=== PATIENT | male | born 1995 | race Caucasian/White ===

== ENCOUNTER 2023-08-04 18:45 | Inpatient (IN) | payer OTHER ==
[~2023-08-04] VITALS: Ht 154.9 cm; Wt 59.1 kg
[2023-08-04 19:46] LABS: HEMATOCRIT 44.8 % (42.0-52.0); HEMOGLOBIN 15.5 g/dl (13.5-17.5); MEAN CORPUSCULAR HEMOGLOBIN 30.9 pg (27.0-33.0); MEAN CORPUSCULAR HGB CONC 34.6 g/dl (32.0-36.5); MEAN CORPUSCULAR VOLUME 89.2 fl (80.0-96.0); PLATELET COUNT, AUTOMATED 307 10^3/uL (150-450); RED BLOOD COUNT 5.02 10^6/uL (4.30-6.10); WHITE BLOOD COUNT 10.7 10^3/uL (4.0-10.0)
[2023-08-04 20:11] LABS: AMPHETAMINES LEVEL URINE NEGATIVE (NEGATIVE); BARBITURATES URINE NEGATIVE (NEGATIVE); BENZODIAZEPINES URINE NEGATIVE (NEGATIVE); COCAINE METABOLITE URINE NEGATIVE (NEGATIVE); METHADONE URINE NEGATIVE (NEGATIVE); OPIATES URINE NEGATIVE (NEGATIVE); PHENCYCLIDINE URINE NEGATIVE (NEGATIVE)
[2023-08-04 20:13] LABS: ETHYL ALCOHOL (ETHANOL) 0.004 % (0.000-0.010)
[2023-08-04 20:14] LABS: SALICYLATE LEVEL < 3.0 MG/DL (<30)
[2023-08-04 20:15] LABS: CANNABINOIDS URINE POSITIVE (NEGATIVE)
[2023-08-04 20:19] LABS: ALBUMIN 4.2 G/DL (3.2-5.2); ALKALINE PHOSPHATASE 78 U/L (46-116); ALT/SGPT 12 U/L (7.0-40); AST/SGOT 8 U/L (<34); BILIRUBIN,DIRECT 0.1 MG/DL (<0.4); BILIRUBIN,TOTAL 0.3 MG/DL (0.3-1.2); BLOOD UREA NITROGEN 10 MG/DL (9-23); CALCIUM LEVEL 9.4 MG/DL (8.5-10.1); CARBON DIOXIDE LEVEL 26 MMOL/L (20-31); CHLORIDE LEVEL 108 MMOL/L (98-107); CREATININE FOR GFR 0.62 MG/DL (0.70-1.30); GLOMERULAR FILTRATION RATE > 60.0 (>60); GLUCOSE, FASTING 96 MG/DL (60-100); POTASSIUM SERUM 4.3 MMOL/L (3.5-5.1); SODIUM LEVEL 138 MMOL/L (136-145); THYROID STIMULATING HORMONE 2.512 uIU/ML (0.55-4.78); TOTAL PROTEIN 6.9 G/DL (5.7-8.2)
[2023-08-05] MEDS ORDERED: TRAZ-252 (07:19)
[2023-08-05] MEDS ORDERED: SPIR50TA4 PO (07:19)
[2023-08-05] MEDS ORDERED: ESTR1DIS TOP (07:19)
[2023-08-05] MEDS ORDERED: TOPI200T7 PO (07:19)
[2023-08-05] MEDS ORDERED: HYDR50TA70 PO (07:19)
[2023-08-05] MEDS ORDERED: CITA10TA7 PO (07:19)
[2023-08-05] MEDS ORDERED: TRAZ-257 PO (07:53)
[2023-08-05] MEDS ORDERED: ARIP1TAB6 PO (07:53)
[2023-08-05] MEDS ORDERED: HOME MED LIST COMPLETE! XX SCH (08:00)
[2023-08-05] MEDS: TOPIRAMATE (TopAMAX) 100 MG TAB PO SCH ×2 (09:02→21:00)
[2023-08-05] MEDS: CitaloPRAM (CeleXA) 10 MG TABLET PO SCH (09:02)
[2023-08-05] MEDS: SPIRONOLACTONE 50 MG TAB PO SCH ×2 (09:43→16:52)
[2023-08-05] MEDS ORDERED: LORazepam 2 MG TAB PO STA (18:17)
[2023-08-05] MEDS: traZODone 100 MG TAB PO SCH (21:00)
[2023-08-06] MEDS: traZODone 100 MG TAB PO SCH (01:50)
[2023-08-06] MEDS: TOPIRAMATE (TopAMAX) 100 MG TAB PO SCH ×3 (01:53→21:44)
[2023-08-06] MEDS: CitaloPRAM (CeleXA) 10 MG TABLET PO SCH (09:26)
[2023-08-06] MEDS: SPIRONOLACTONE 50 MG TAB PO SCH ×2 (09:27→18:05)
[2023-08-06] MEDS ORDERED: MAALOX 30 ML SUSP *UDC PO PRN (16:00)
[2023-08-06] MEDS ORDERED: IBUPROFEN 400MG TAB PO PRN (16:00)
[2023-08-06] MEDS ORDERED: MOM 30ML SUSPENSION UDC PO PRN (16:00)
[2023-08-06] MEDS ORDERED: ACETAMINOPHEN TAB 650MG DOSE (2X325MG) PO PRN (16:00)
[2023-08-06] MEDS ORDERED: traZODone 50 MG TAB PO PRN (16:00)
[2023-08-06] MEDS ORDERED: LORazepam 2 MG TAB PO STA (21:20)
[2023-08-06] MEDS ORDERED: OLANZapine INTRAMUSCULAR 10MG VIAL IM ONE (21:35)
[2023-08-06] MEDS ORDERED: LORazepam 2 MG/ML 1ML VIAL As Ordered ONE (21:36)
[2023-08-06] MEDS: diphenhydrAMINE 25MG CAP PO PRN (21:44)
[2023-08-07 00:41] VITALS: BP 131/80; TEMP 98; O2SAT 98
[2023-08-07 06:20] VITALS: BP 119/72; TEMP 98; O2SAT 97
[2023-08-07] MEDS ORDERED: CHLORASEPTIC SPRAY MT PRN (09:25)
[2023-08-07] MEDS: ARIPiprazole 10 MG TAB PO SCH (09:27)
[2023-08-07] MEDS: CitaloPRAM (CeleXA) 10 MG TABLET PO SCH (09:27)
[2023-08-07] MEDS: TOPIRAMATE (TopAMAX) 100 MG TAB PO SCH ×2 (09:27→20:12)
[2023-08-07] MEDS: SPIRONOLACTONE 25 MG TAB PO SCH ×2 (10:40→16:14)
[2023-08-07 10:55] LABS: BASO # 0.1 10^3/uL (0.0-0.2); BASO % 0.9 % (0.0-1.0); EOS # 0.1 10^3/uL (0.0-0.5); EOS % 1.4 % (0.0-3.0); HEMATOCRIT 46.8 % (42.0-52.0); HEMOGLOBIN 15.9 g/dl (13.5-17.5); LYMPH # 1.4 10^3/uL (1.5-5.0); LYMPH % 24.9 % (24.0-44.0); MEAN CORPUSCULAR HEMOGLOBIN 30.5 pg (27.0-33.0); MEAN CORPUSCULAR VOLUME 89.7 fl (80.0-96.0); MONO # 0.8 10^3/uL (0.0-0.8); MONO % 14.5 % (2.0-8.0); NEUTROPHILS # 3.3 10^3/uL (1.5-8.5); NEUTROPHILS % 57.6 % (36.0-66.0); PLATELET COUNT, AUTOMATED 281 10^3/uL (150-450); RED BLOOD COUNT 5.22 10^6/uL (4.30-6.10); WHITE BLOOD COUNT 5.7 10^3/uL (4.0-10.0)
[2023-08-07] MEDS: AMOXICILLIN 875 MG TAB PO SCH ×2 (10:57→20:12)
[2023-08-07 11:02] LABS: ERYTHROCYTE SEDIMENTATION RATE 4 mm/hr (0-15)
[2023-08-07 11:23] LABS: MONO SCRN NEGATIVE (NEGATIVE)
[2023-08-07] MEDS: CHLORASEPTIC SPRAY MT SCH ×3 (12:18→20:13)
[2023-08-07] MEDS: ESTRADIOL TD SCH (12:19)
[2023-08-07 18:00] VITALS: BP 142/67; TEMP 97.5; O2SAT 99
[2023-08-07] MEDS: traZODone 100 MG TAB PO SCH (20:12)
[2023-08-07] MEDS: OLANZapine ORAL DISINTEGRATING TAB 5MG PO PRN (20:58)
[2023-08-07] MEDS: diphenhydrAMINE 25MG CAP PO PRN (22:25)
[2023-08-08 06:05] VITALS: BP 143/63; TEMP 97.7; O2SAT 97
[2023-08-08] MEDS: TOPIRAMATE (TopAMAX) 100 MG TAB PO SCH ×2 (08:11→20:11)
[2023-08-08] MEDS: SPIRONOLACTONE 25 MG TAB PO SCH ×2 (08:11→16:36)
[2023-08-08] MEDS: AMOXICILLIN 875 MG TAB PO SCH ×2 (08:11→20:11)
[2023-08-08] MEDS: CitaloPRAM (CeleXA) 10 MG TABLET PO SCH (08:12)
[2023-08-08] MEDS: ARIPiprazole 10 MG TAB PO SCH (08:12)
[2023-08-08] MEDS: CHLORASEPTIC SPRAY MT SCH ×4 (08:12→20:11)
[2023-08-08] MEDS: PILL CUTTER 1 EACH XX PRN (08:12)
[2023-08-08 16:50] VITALS: BP 129/76; TEMP 97.6; O2SAT 96
[2023-08-08] MEDS: diphenhydrAMINE 25MG CAP PO PRN (21:24)
[2023-08-08] MEDS: traZODone 100 MG TAB PO SCH (21:24)
[2023-08-09 05:51] VITALS: BP 101/46; TEMP 98.6
[2023-08-09 07:05] LABS: CHOLESTEROL RISK RATIO 3.12 (<5); HDL CHOLESTEROL 40.9 MG/DL (>40); LDL CHOLESTEROL 70.5 MG/DL (<100); NON-HDL-C 87.1 MG/DL
[2023-08-09] MEDS: TOPIRAMATE (TopAMAX) 100 MG TAB PO SCH ×2 (08:29→20:07)
[2023-08-09] MEDS: AMOXICILLIN 875 MG TAB PO SCH ×2 (08:29→20:06)
[2023-08-09] MEDS: ARIPiprazole 10 MG TAB PO SCH (08:29)
[2023-08-09] MEDS: CitaloPRAM (CeleXA) 10 MG TABLET PO SCH (08:29)
[2023-08-09] MEDS: SPIRONOLACTONE 25 MG TAB PO SCH ×2 (08:30→16:03)
[2023-08-09] MEDS: CHLORASEPTIC SPRAY MT SCH ×4 (08:31→20:07)
[2023-08-09 16:12] VITALS: BP 118/68; TEMP 98.3; O2SAT 99
[2023-08-09] MEDS: traZODone 100 MG TAB PO SCH (20:22)
[2023-08-10 06:18] VITALS: BP 122/65; TEMP 98
[2023-08-10] MEDS: CHLORASEPTIC SPRAY MT SCH ×4 (08:06→20:05)
[2023-08-10] MEDS: AMOXICILLIN 875 MG TAB PO SCH ×2 (08:06→20:05)
[2023-08-10] MEDS: TOPIRAMATE (TopAMAX) 100 MG TAB PO SCH ×2 (08:07→20:05)
[2023-08-10] MEDS: SPIRONOLACTONE 25 MG TAB PO SCH ×2 (08:07→17:19)
[2023-08-10] MEDS: ARIPiprazole 10 MG TAB PO SCH (08:07)
[2023-08-10] MEDS: CitaloPRAM (CeleXA) 10 MG TABLET PO SCH (08:08)
[2023-08-10] MEDS: ESTRADIOL TD SCH ×2 (08:44→09:00)
[2023-08-10 16:47] VITALS: BP 116/60; TEMP 98.6; O2SAT 100
[2023-08-10] MEDS: traZODone 50 MG TAB PO SCH (20:05)
[2023-08-11 06:20] VITALS: BP 114/66; TEMP 96.9; O2SAT 98
[2023-08-11] MEDS: CHLORASEPTIC SPRAY MT SCH (08:16)
[2023-08-11] MEDS: CitaloPRAM (CeleXA) 10 MG TABLET PO SCH (08:17)
[2023-08-11] MEDS: ARIPiprazole 15 MG TAB (AbiLIFY) PO SCH (08:19)
[2023-08-11] MEDS: PILL CUTTER 1 EACH XX PRN (08:19)
[2023-08-11] MEDS: AMOXICILLIN 875 MG TAB PO SCH ×2 (08:19→20:07)
[2023-08-11] MEDS: SPIRONOLACTONE 25 MG TAB PO SCH ×2 (08:19→17:35)
[2023-08-11] MEDS: TOPIRAMATE (TopAMAX) 100 MG TAB PO SCH ×2 (08:19→20:07)
[2023-08-11 16:25] VITALS: BP 114/73; TEMP 97.7; O2SAT 100
[2023-08-11] MEDS: traZODone 50 MG TAB PO SCH (20:40)
[2023-08-12 06:19] VITALS: BP 123/61; TEMP 97.9; O2SAT 96
[2023-08-12] MEDS: TOPIRAMATE (TopAMAX) 100 MG TAB PO SCH ×2 (08:38→20:26)
[2023-08-12] MEDS: CitaloPRAM (CeleXA) 10 MG TABLET PO SCH (08:38)
[2023-08-12] MEDS: ARIPiprazole 15 MG TAB (AbiLIFY) PO SCH (08:38)
[2023-08-12] MEDS: AMOXICILLIN 875 MG TAB PO SCH ×2 (08:38→20:26)
[2023-08-12] MEDS: SPIRONOLACTONE 25 MG TAB PO SCH ×2 (08:38→17:17)
[2023-08-12] MEDS: PILL CUTTER 1 EACH XX PRN (08:39)
[2023-08-12] MEDS: OLANZapine ORAL DISINTEGRATING TAB 5MG PO PRN (20:26)
[2023-08-12] MEDS: traZODone 50 MG TAB PO SCH (21:19)
[2023-08-13 06:16] VITALS: BP 105/56; TEMP 97.6; O2SAT 98
[2023-08-13] MEDS: CitaloPRAM (CeleXA) 10 MG TABLET PO SCH (08:30)
[2023-08-13] MEDS: SPIRONOLACTONE 50 MG TAB PO SCH ×2 (08:30→16:38)
[2023-08-13] MEDS: ARIPiprazole 15 MG TAB (AbiLIFY) PO SCH (08:30)
[2023-08-13] MEDS: TOPIRAMATE (TopAMAX) 100 MG TAB PO SCH ×2 (08:31→20:24)
[2023-08-13] MEDS: AMOXICILLIN 875 MG TAB PO SCH ×2 (08:32→20:24)
[2023-08-13 17:20] VITALS: BP 112/57; TEMP 97.9
[2023-08-13] MEDS: traZODone 50 MG TAB PO SCH (21:20)
[2023-08-14 06:36] VITALS: BP 110/55; TEMP 97.9; O2SAT 100
[2023-08-14] MEDS: AMOXICILLIN 875 MG TAB PO SCH ×2 (08:21→20:19)
[2023-08-14] MEDS: CitaloPRAM (CeleXA) 10 MG TABLET PO SCH (08:22)
[2023-08-14] MEDS: ARIPiprazole 15 MG TAB (AbiLIFY) PO SCH (08:22)
[2023-08-14] MEDS: TOPIRAMATE (TopAMAX) 100 MG TAB PO SCH ×2 (08:22→20:19)
[2023-08-14] MEDS: SPIRONOLACTONE 50 MG TAB PO SCH ×2 (08:22→17:27)
[2023-08-14] MEDS: PILL CUTTER 1 EACH XX PRN (08:24)
[2023-08-14] MEDS: ESTRADIOL TD SCH (09:00)
[2023-08-14] MEDS ORDERED: ARIPiprazole MONOHYDRATE 400 MG INJ (ABILIFY) PT CHG ONE IM (11:00)
[2023-08-14] MEDS ORDERED: ARIPiprazole MONOHYDRATE 400 MG INJ (ABILIFY)(FREE PSY INPT ONLY) IM ONE (12:00)
[2023-08-14 19:09] VITALS: BP 120/58; TEMP 98.1; O2SAT 97
[2023-08-14] MEDS: diphenhydrAMINE 25MG CAP PO PRN (21:00)
[2023-08-14] MEDS: traZODone 50 MG TAB PO SCH (21:00)
[2023-08-14] MEDS: OLANZapine ORAL DISINTEGRATING TAB 5MG PO PRN (21:39)
[2023-08-15] MEDS: SPIRONOLACTONE 50 MG TAB PO SCH ×2 (08:06→16:50)
[2023-08-15] MEDS: CitaloPRAM (CeleXA) 10 MG TABLET PO SCH (08:06)
[2023-08-15] MEDS: AMOXICILLIN 875 MG TAB PO SCH ×2 (08:06→20:03)
[2023-08-15] MEDS: TOPIRAMATE (TopAMAX) 100 MG TAB PO SCH ×2 (08:06→20:03)
[2023-08-15] MEDS: ARIPiprazole 15 MG TAB (AbiLIFY) PO SCH (08:06)
[2023-08-15] MEDS: PILL CUTTER 1 EACH XX PRN (08:07)
[2023-08-15] MEDS: diphenhydrAMINE 25MG CAP PO PRN (10:33)
[2023-08-15 19:08] VITALS: BP 124/70; TEMP 98.7
[2023-08-15] MEDS: traZODone 50 MG TAB PO SCH (21:42)
[2023-08-16 06:21] VITALS: BP 138/64; TEMP 98.1; O2SAT 98
[2023-08-16] MEDS: diphenhydrAMINE 25MG CAP PO PRN (07:58)
[2023-08-16] MEDS: CitaloPRAM (CeleXA) 10 MG TABLET PO SCH (08:02)
[2023-08-16] MEDS: ARIPiprazole 15 MG TAB (AbiLIFY) PO SCH (08:02)
[2023-08-16] MEDS: AMOXICILLIN 875 MG TAB PO SCH (08:02)
[2023-08-16] MEDS: SPIRONOLACTONE 50 MG TAB PO SCH (08:02)
[2023-08-16] MEDS: TOPIRAMATE (TopAMAX) 100 MG TAB PO SCH (08:02)
[2023-08-16] MEDS ORDERED: CELE10TA PO ×2 (09:30→09:33)
[2023-08-16] MEDS ORDERED: ABIL1TAB12 PO (09:30)
[2023-08-16] MEDS ORDERED: TRAZ-257 PO (09:30)
== END 2023-08-16 12:17 | disposition other institution (70) | DRG 750 ==
LOC: EDBD 18:45 → M ED 18:45 → M ED INP 08-06 16:02 → M PSY 08-06 23:45
PROVIDERS: ADMIT Student in an Organized Health Care Education/Training Program; ATTEND Student in an Organized Health Care Education/Training Program
DX: F25.9 Schizoaffective disorder, unspecified (principal); F79 Unspecified intellectual disabilities; R45.851 Suicidal ideations; F41.9 Anxiety disorder, unspecified; F60.3 Borderline personality disorder; J02.9 Acute pharyngitis, unspecified; F17.210 Nicotine dependence, cigarettes, uncomplicated; F64.0 Transsexualism; Z59.01 Sheltered homelessness; Z56.0 Unemployment, unspecified; Z91.51 Personal history of suicidal behavior; Z79.899 Other long term (current) drug therapy; Z63.8 Other specified problems related to primary support group

== ENCOUNTER 2023-09-08 13:52 | Inpatient (IN) | payer MEDICAID, OTHER ==
[~2023-09-08] VITALS: Ht 154.9 cm; Wt 58.1 kg
[~2023-09-08 13:52] MED LIST: ABIL1TAB12 PO; ARIP1TAB6 PO; CELE10TA PO; CITA10TA7 PO; ESTR1DIS TOP; HYDR50TA70 PO; SPIR50TA4 PO; TOPI200T7 PO; TRAZ-252; TRAZ-257 PO
[2023-09-08 14:55] LABS: BASO % 0.6 % (0.0-1.0); EOS # 0.1 10^3/uL (0.0-0.5); HEMATOCRIT 44.6 % (42.0-52.0); HEMOGLOBIN 15.8 g/dl (13.5-17.5); LYMPH % 28.1 % (24.0-44.0); MEAN CORPUSCULAR HEMOGLOBIN 30.9 pg (27.0-33.0); MEAN CORPUSCULAR HGB CONC 35.4 g/dl (32.0-36.5); MEAN CORPUSCULAR VOLUME 87.1 fl (80.0-96.0); MONO # 0.8 10^3/uL (0.0-0.8); MONO % 10.6 % (2.0-8.0); NEUTROPHILS # 4.2 10^3/uL (1.5-8.5); NEUTROPHILS % 59.3 % (36.0-66.0); PLATELET COUNT, AUTOMATED 314 10^3/uL (150-450); RED BLOOD COUNT 5.12 10^6/uL (4.30-6.10); WHITE BLOOD COUNT 7.1 10^3/uL (4.0-10.0)
[2023-09-08 15:23] LABS: ETHYL ALCOHOL (ETHANOL) < 0.003 % (0.000-0.010)
[2023-09-08 15:24] LABS: SALICYLATE LEVEL < 3.0 MG/DL (<30)
[2023-09-08 15:25] LABS: ALBUMIN 4.3 G/DL (3.2-5.2); ALKALINE PHOSPHATASE 79 U/L (46-116); ALT/SGPT 12 U/L (7.0-40); AST/SGOT 10 U/L (<34); BILIRUBIN,DIRECT 0.1 MG/DL (<0.4); BILIRUBIN,TOTAL 0.4 MG/DL (0.3-1.2); BLOOD UREA NITROGEN 12 MG/DL (9-23); CALCIUM LEVEL 8.9 MG/DL (8.5-10.1); CARBON DIOXIDE LEVEL 20 MMOL/L (20-31); CHLORIDE LEVEL 108 MMOL/L (98-107); CREATININE FOR GFR 0.68 MG/DL (0.70-1.30); GLOMERULAR FILTRATION RATE > 60.0 (>60); GLUCOSE, FASTING 84 MG/DL (60-100); POTASSIUM SERUM 4.1 MMOL/L (3.5-5.1); SODIUM LEVEL 136 MMOL/L (136-145); TOTAL PROTEIN 6.9 G/DL (5.7-8.2)
[2023-09-08 15:27] LABS: THYROID STIMULATING HORMONE 1.625 uIU/ML (0.55-4.78)
[2023-09-08 15:30] LABS: CPK CREATINE PHOSPHOKINASE 61 U/L (46-171)
[2023-09-08 15:34] LABS: RSV AMPLIFICATION NEGATIVE (NEGATIVE)
[2023-09-08 20:13] LABS: AMPHETAMINES LEVEL URINE NEGATIVE (NEGATIVE); BARBITURATES URINE NEGATIVE (NEGATIVE); BENZODIAZEPINES URINE NEGATIVE (NEGATIVE); CANNABINOIDS URINE NEGATIVE (NEGATIVE); COCAINE METABOLITE URINE NEGATIVE (NEGATIVE); METHADONE URINE NEGATIVE (NEGATIVE); OPIATES URINE NEGATIVE (NEGATIVE); PHENCYCLIDINE URINE NEGATIVE (NEGATIVE)
[2023-09-08] MEDS ORDERED: diphenhydrAMINE 25MG CAP PO PRN (21:00)
[2023-09-08] MEDS ORDERED: traZODone 50 MG TAB PO PRN (21:00)
[2023-09-08] MEDS ORDERED: MAALOX 30 ML SUSP *UDC PO PRN (21:00)
[2023-09-08] MEDS ORDERED: ACETAMINOPHEN TAB 650MG DOSE (2X325MG) PO PRN (21:00)
[2023-09-08] MEDS: TOPIRAMATE (TopAMAX) 100 MG TAB PO SCH (21:00)
[2023-09-08] MEDS ORDERED: MOM 30ML SUSPENSION UDC PO PRN (21:00)
[2023-09-08] MEDS ORDERED: NICOTINE 21MG/24HR 1 EA TRANSDERMAL TD PRN (21:00)
[2023-09-08] MEDS ORDERED: IBUPROFEN 400MG TAB PO PRN (21:00)
[2023-09-08] MEDS ORDERED: hydrOXYzine 50 MG TAB PO PRN (21:05)
[2023-09-08] MEDS ORDERED: ESTR2TAB3 PO (21:20)
[2023-09-08] MEDS ORDERED: ARIP1TAB10 PO (21:21)
[2023-09-08] MEDS ORDERED: TRAZ1TAB14 PO (21:21)
[2023-09-08] MEDS ORDERED: HOME MED LIST COMPLETE! XX SCH (21:25)
[2023-09-08 23:32] VITALS: BP 109/53; TEMP 98; O2SAT 100
[2023-09-08] MEDS: traZODone 100 MG TAB PO SCH (23:57)
[2023-09-09 06:31] VITALS: BP 115/58; TEMP 97.6; O2SAT 97
[2023-09-09] MEDS ORDERED: PILL CUTTER 1 EACH XX PRN (09:25)
[2023-09-09] MEDS: CitaloPRAM (CeleXA) 10 MG TABLET PO SCH (09:29)
[2023-09-09] MEDS: ARIPiprazole 15 MG TAB (AbiLIFY) PO SCH (09:32)
[2023-09-09] MEDS: SPIRONOLACTONE 50 MG TAB PO SCH (09:32)
[2023-09-09] MEDS: estradioL 1 MG TAB PO SCH (13:03)
[2023-09-09 16:18] VITALS: BP 112/56; TEMP 97.9; O2SAT 100
[2023-09-10 06:29] VITALS: BP 111/55; TEMP 98.3; O2SAT 98
[2023-09-10] MEDS: CitaloPRAM (CeleXA) 20 MG TAB PO SCH (08:29)
[2023-09-10 17:31] VITALS: BP 122/68; TEMP 97.1
[2023-09-11 06:15] VITALS: BP 119/58; TEMP 97.1; O2SAT 97
[2023-09-11] MEDS ORDERED: CELE20TA PO (06:57)
== END 2023-09-11 08:36 | disposition home or self-care (01) | DRG 750 ==
LOC: M ED 13:52 → EDBD 13:52 → M ED INP 20:56 → M PSY 23:17
PROVIDERS: ADMIT Student in an Organized Health Care Education/Training Program; ATTEND Student in an Organized Health Care Education/Training Program
DX: F25.9 Schizoaffective disorder, unspecified (principal); R56.9 Unspecified convulsions; R45.851 Suicidal ideations; F79 Unspecified intellectual disabilities; Z59.01 Sheltered homelessness; F41.9 Anxiety disorder, unspecified; F64.9 Gender identity disorder, unspecified; F17.200 Nicotine dependence, unspecified, uncomplicated; F60.3 Borderline personality disorder; Z91.51 Personal history of suicidal behavior; Z79.899 Other long term (current) drug therapy; Z91.52 Personal history of nonsuicidal self-harm

== ENCOUNTER 2023-09-12 21:21 | Emergency (ER) | payer OTHER ==
[~2023-09-12] VITALS: Ht 154.9 cm; Wt 58.2 kg
[~2023-09-12 21:21] MED LIST changes: +ARIP1TAB10 PO; +CELE20TA PO; +ESTR2TAB3 PO; +TRAZ1TAB14 PO
[2023-09-12 21:50] VITALS: BP 116/69; TEMP 97.1; O2SAT 99
[2023-09-12 22:26] LABS: HEMATOCRIT 44.6 % (42.0-52.0); HEMOGLOBIN 15.2 g/dl (13.5-17.5); MEAN CORPUSCULAR HGB CONC 34.1 g/dl (32.0-36.5); PLATELET COUNT, AUTOMATED 284 10^3/uL (150-450); RED BLOOD COUNT 5.07 10^6/uL (4.30-6.10)
[2023-09-12 22:46] LABS: AMPHETAMINES LEVEL URINE NEGATIVE (NEGATIVE); BARBITURATES URINE NEGATIVE (NEGATIVE); BENZODIAZEPINES URINE NEGATIVE (NEGATIVE); COCAINE METABOLITE URINE NEGATIVE (NEGATIVE); METHADONE URINE NEGATIVE (NEGATIVE); OPIATES URINE NEGATIVE (NEGATIVE); PHENCYCLIDINE URINE NEGATIVE (NEGATIVE)
[2023-09-12 22:47] LABS: ETHYL ALCOHOL (ETHANOL) 0.005 % (0.000-0.010)
[2023-09-12 22:48] LABS: SALICYLATE LEVEL < 3.0 MG/DL (<30)
[2023-09-12 22:49] LABS: ALBUMIN 4.2 G/DL (3.2-5.2); ALKALINE PHOSPHATASE 77 U/L (46-116); ALT/SGPT 13 U/L (7.0-40); AST/SGOT 13 U/L (<34); BILIRUBIN,DIRECT 0.2 MG/DL (<0.4); BILIRUBIN,TOTAL 0.4 MG/DL (0.3-1.2); BLOOD UREA NITROGEN 7 MG/DL (9-23); CALCIUM LEVEL 9.2 MG/DL (8.5-10.1); CARBON DIOXIDE LEVEL 21 MMOL/L (20-31); CHLORIDE LEVEL 111 MMOL/L (98-107); GLOMERULAR FILTRATION RATE > 60.0 (>60); GLUCOSE, FASTING 109 MG/DL (60-100); POTASSIUM SERUM 3.7 MMOL/L (3.5-5.1); SODIUM LEVEL 140 MMOL/L (136-145); TOTAL PROTEIN 6.8 G/DL (5.7-8.2)
[2023-09-12 22:52] LABS: THYROID STIMULATING HORMONE 4.829 uIU/ML (0.55-4.78)
[2023-09-12 23:02] LABS: CANNABINOIDS URINE POSITIVE (NEGATIVE)
[2023-09-13] MEDS ORDERED: CELE20TA PO (23:43)
== END 2023-09-13 00:09 | disposition home or self-care (01) ==
LOC: M ED 21:21
DX: F32.A Depression, unspecified (principal); F43.0 Acute stress reaction; F17.200 Nicotine dependence, unspecified, uncomplicated; Z79.899 Other long term (current) drug therapy

== ENCOUNTER 2023-09-13 21:22 | Emergency (ER) | payer OTHER ==
[2023-09-13 22:07] LABS: HEMATOCRIT 43.9 % (42.0-52.0); HEMOGLOBIN 15.3 g/dl (13.5-17.5); MEAN CORPUSCULAR HEMOGLOBIN 30.6 pg (27.0-33.0); MEAN CORPUSCULAR HGB CONC 34.9 g/dl (32.0-36.5); MEAN CORPUSCULAR VOLUME 87.8 fl (80.0-96.0); PLATELET COUNT, AUTOMATED 283 10^3/uL (150-450); WHITE BLOOD COUNT 8.5 10^3/uL (4.0-10.0)
[2023-09-13 22:37] LABS: ETHYL ALCOHOL (ETHANOL) < 0.003 % (0.000-0.010)
[2023-09-13 22:39] LABS: SALICYLATE LEVEL < 3.0 MG/DL (<30)
[2023-09-13 22:41] LABS: ALBUMIN 4.1 G/DL (3.2-5.2); ALKALINE PHOSPHATASE 70 U/L (46-116); ALT/SGPT 13 U/L (7.0-40); AST/SGOT 10 U/L (<34); BILIRUBIN,DIRECT 0.1 MG/DL (<0.4); BILIRUBIN,TOTAL 0.3 MG/DL (0.3-1.2); BLOOD UREA NITROGEN 15 MG/DL (9-23); CALCIUM LEVEL 9.1 MG/DL (8.5-10.1); CARBON DIOXIDE LEVEL 23 MMOL/L (20-31); CHLORIDE LEVEL 111 MMOL/L (98-107); CREATININE FOR GFR 0.61 MG/DL (0.70-1.30); GLOMERULAR FILTRATION RATE > 60.0 (>60); GLUCOSE, FASTING 87 MG/DL (60-100); POTASSIUM SERUM 3.8 MMOL/L (3.5-5.1); SODIUM LEVEL 140 MMOL/L (136-145); THYROID STIMULATING HORMONE 3.176 uIU/ML (0.55-4.78); TOTAL PROTEIN 6.7 G/DL (5.7-8.2)
[2023-09-13] MEDS ORDERED: CELE20TA PO (23:43)
[2023-09-13] MEDS ORDERED: HOME MED LIST COMPLETE! XX SCH (23:45)
[2023-09-14 00:25] LABS: AMPHETAMINES LEVEL URINE NEGATIVE (NEGATIVE); BARBITURATES URINE NEGATIVE (NEGATIVE); BENZODIAZEPINES URINE NEGATIVE (NEGATIVE); COCAINE METABOLITE URINE NEGATIVE (NEGATIVE); METHADONE URINE NEGATIVE (NEGATIVE); OPIATES URINE NEGATIVE (NEGATIVE); PHENCYCLIDINE URINE NEGATIVE (NEGATIVE)
[2023-09-14 00:26] LABS: CANNABINOIDS URINE POSITIVE (NEGATIVE)
[2023-09-14] MEDS: CitaloPRAM (CeleXA) 20 MG TAB PO SCH (11:36)
[2023-09-14 13:04] VITALS: BP 124/72; TEMP 98; O2SAT 99
[2023-09-14] MEDS ORDERED: TOPIRAMATE (TopAMAX) 100 MG TAB PO SCH (21:00)
[2023-09-15] MEDS ORDERED: estradioL 1 MG TAB PO SCH (09:00)
[2023-09-15] MEDS ORDERED: ARIPiprazole 15 MG TAB (AbiLIFY) PO SCH (09:00)
[2023-09-15] MEDS ORDERED: SPIRONOLACTONE 50 MG TAB PO SCH (09:00)
== END 2023-09-14 13:28 | disposition home or self-care (01) ==
LOC: M ED 21:22
DX: F32.A Depression, unspecified (principal); F17.210 Nicotine dependence, cigarettes, uncomplicated; F10.10 Alcohol abuse, uncomplicated; Z79.899 Other long term (current) drug therapy

== ENCOUNTER 2023-09-16 20:31 | Inpatient (IN) | payer OTHER ==
[~2023-09-16] VITALS: Ht 154.9 cm; Wt 58.4 kg
[2023-09-16 21:14] LABS: HEMATOCRIT 44.9 % (42.0-52.0); HEMOGLOBIN 15.3 g/dl (13.5-17.5); MEAN CORPUSCULAR HEMOGLOBIN 30.1 pg (27.0-33.0); MEAN CORPUSCULAR HGB CONC 34.1 g/dl (32.0-36.5); MEAN CORPUSCULAR VOLUME 88.4 fl (80.0-96.0); PLATELET COUNT, AUTOMATED 282 10^3/uL (150-450); RED BLOOD COUNT 5.08 10^6/uL (4.30-6.10); WHITE BLOOD COUNT 7.3 10^3/uL (4.0-10.0)
[2023-09-16] MEDS ORDERED: HOME MED LIST COMPLETE! XX SCH (21:20)
[2023-09-16 21:38] LABS: BARBITURATES URINE NEGATIVE (NEGATIVE); COCAINE METABOLITE URINE NEGATIVE (NEGATIVE)
[2023-09-16 21:39] LABS: AMPHETAMINES LEVEL URINE NEGATIVE (NEGATIVE); BENZODIAZEPINES URINE NEGATIVE (NEGATIVE); METHADONE URINE NEGATIVE (NEGATIVE); OPIATES URINE NEGATIVE (NEGATIVE); PHENCYCLIDINE URINE NEGATIVE (NEGATIVE)
[2023-09-16 21:40] LABS: CANNABINOIDS URINE POSITIVE (NEGATIVE)
[2023-09-16 21:42] LABS: ETHYL ALCOHOL (ETHANOL) < 0.003 % (0.000-0.010)
[2023-09-16 21:43] LABS: SALICYLATE LEVEL < 3.0 MG/DL (<30)
[2023-09-16 21:44] LABS: THYROID STIMULATING HORMONE 2.756 uIU/ML (0.55-4.78)
[2023-09-16 21:47] LABS: ALBUMIN 3.9 G/DL (3.2-5.2); ALKALINE PHOSPHATASE 72 U/L (46-116); ALT/SGPT 11 U/L (7.0-40); AST/SGOT 12 U/L (<34); BILIRUBIN,DIRECT 0.1 MG/DL (<0.4); BILIRUBIN,TOTAL 0.3 MG/DL (0.3-1.2); BLOOD UREA NITROGEN 7 MG/DL (9-23); CALCIUM LEVEL 8.6 MG/DL (8.5-10.1); CARBON DIOXIDE LEVEL 25 MMOL/L (20-31); CHLORIDE LEVEL 112 MMOL/L (98-107); CREATININE FOR GFR 0.55 MG/DL (0.70-1.30); GLOMERULAR FILTRATION RATE > 60.0 (>60); GLUCOSE, FASTING 92 MG/DL (60-100); POTASSIUM SERUM 4.1 MMOL/L (3.5-5.1); SODIUM LEVEL 142 MMOL/L (136-145); TOTAL PROTEIN 6.6 G/DL (5.7-8.2)
[2023-09-16] MEDS ORDERED: MAALOX 30 ML SUSP *UDC PO PRN (23:45)
[2023-09-16] MEDS ORDERED: MOM 30ML SUSPENSION UDC PO PRN (23:45)
[2023-09-16] MEDS ORDERED: IBUPROFEN 400MG TAB PO PRN (23:45)
[2023-09-16] MEDS ORDERED: ACETAMINOPHEN TAB 650MG DOSE (2X325MG) PO PRN (23:45)
[2023-09-16] MEDS ORDERED: traZODone 50 MG TAB PO PRN (23:45)
[2023-09-17 06:12] VITALS: BP 120/74; TEMP 97.4; O2SAT 98
[2023-09-17] MEDS ORDERED: hydrOXYzine 50 MG TAB PO PRN (08:15)
[2023-09-17] MEDS: estradioL 1 MG TAB PO SCH (08:51)
[2023-09-17] MEDS: CitaloPRAM (CeleXA) 20 MG TAB PO SCH (08:52)
[2023-09-17] MEDS: SPIRONOLACTONE 50 MG TAB PO SCH (08:52)
[2023-09-17] MEDS: TOPIRAMATE (TopAMAX) 100 MG TAB PO SCH (08:52)
[2023-09-17] MEDS: ARIPiprazole 15 MG TAB (AbiLIFY) PO SCH (08:52)
[2023-09-17] MEDS: ARIPiprazole MONOHYDRATE 400 MG INJ (ABILIFY)(FREE PSY INPT ONLY) IM SCH (12:59)
[2023-09-17 18:33] VITALS: BP 120/67; TEMP 98.4; O2SAT 97
[2023-09-17] MEDS: traZODone 50 MG TAB PO SCH (20:04)
[2023-09-18 06:23] VITALS: BP 122/76; TEMP 97.9; O2SAT 97
[2023-09-18] MEDS: ARIPiprazole 10 MG TAB PO SCH (08:29)
[2023-09-18] MEDS: ENOXAPARIN 40MG/0.4ML SYRINGE (J1650 PER 10MG) SC SCH (09:00)
[2023-09-18] MEDS: diphenhydrAMINE 25MG CAP PO PRN (14:24)
[2023-09-18 14:34] VITALS: BP 114/56; TEMP 97.6; O2SAT 95
[2023-09-19 06:46] VITALS: BP 117/68; TEMP 97.7; O2SAT 97
[2023-09-19 17:38] VITALS: BP 114/62; TEMP 97.1; O2SAT 96
[2023-09-20 06:25] VITALS: BP 105/51; TEMP 97.2; O2SAT 95
[2023-09-20 07:37] LABS: HEMATOCRIT 48.1 % (42.0-52.0); HEMOGLOBIN 16.2 g/dl (13.5-17.5); MEAN CORPUSCULAR HEMOGLOBIN 30.4 pg (27.0-33.0); MEAN CORPUSCULAR HGB CONC 33.7 g/dl (32.0-36.5); MEAN CORPUSCULAR VOLUME 90.2 fl (80.0-96.0); PLATELET COUNT, AUTOMATED 264 10^3/uL (150-450); RED BLOOD COUNT 5.33 10^6/uL (4.30-6.10)
[2023-09-20 18:49] VITALS: BP 130/58; TEMP 97.7; O2SAT 99
[2023-09-21 06:15] VITALS: BP 116/59; TEMP 98.2
[2023-09-21] MEDS ORDERED: ABIL10TA9 PO (08:09)
[2023-09-21] MEDS ORDERED: TRAZ1TAB14 PO (08:09)
[2023-09-21] MEDS ORDERED: SPIR50TA4 PO (08:09)
[2023-09-21] MEDS ORDERED: TOPI200T7 PO (08:09)
[2023-09-21] MEDS ORDERED: ABIL400I IM (08:09)
== END 2023-09-21 08:22 | disposition home or self-care (01) | DRG 750 ==
LOC: M ED 20:31 → M ED INP 23:41 → M PSY 09-17 06:06
PROVIDERS: ADMIT Psychiatry & Neurology Psychiatry; ATTEND Student in an Organized Health Care Education/Training Program
DX: F25.9 Schizoaffective disorder, unspecified (principal); F79 Unspecified intellectual disabilities; F41.9 Anxiety disorder, unspecified; F17.210 Nicotine dependence, cigarettes, uncomplicated; F60.3 Borderline personality disorder; F64.9 Gender identity disorder, unspecified; Z79.899 Other long term (current) drug therapy

== ENCOUNTER 2023-09-23 00:14 | Inpatient (IN) | payer OTHER ==
[~2023-09-23] VITALS: Ht 154.9 cm; Wt 58.0 kg
[~2023-09-23 00:14] MED LIST changes: +ABIL10TA9 PO; +ABIL400I IM
[2023-09-23 00:53] LABS: HEMATOCRIT 43.4 % (42.0-52.0); MEAN CORPUSCULAR HEMOGLOBIN 30.6 pg (27.0-33.0); MEAN CORPUSCULAR HGB CONC 34.6 g/dl (32.0-36.5); MEAN CORPUSCULAR VOLUME 88.6 fl (80.0-96.0); PLATELET COUNT, AUTOMATED 277 10^3/uL (150-450); WHITE BLOOD COUNT 10.5 10^3/uL (4.0-10.0)
[2023-09-23 01:12] LABS: CANNABINOIDS URINE NEGATIVE (NEGATIVE); PHENCYCLIDINE URINE NEGATIVE (NEGATIVE)
[2023-09-23 01:13] LABS: AMPHETAMINES LEVEL URINE NEGATIVE (NEGATIVE); BARBITURATES URINE NEGATIVE (NEGATIVE); BENZODIAZEPINES URINE NEGATIVE (NEGATIVE); COCAINE METABOLITE URINE NEGATIVE (NEGATIVE); METHADONE URINE NEGATIVE (NEGATIVE); OPIATES URINE NEGATIVE (NEGATIVE)
[2023-09-23 01:14] LABS: ETHYL ALCOHOL (ETHANOL) < 0.003 % (0.000-0.010)
[2023-09-23 01:15] LABS: SALICYLATE LEVEL < 3.0 MG/DL (<30)
[2023-09-23 01:16] LABS: ALBUMIN 3.9 G/DL (3.2-5.2); ALKALINE PHOSPHATASE 76 U/L (46-116); ALT/SGPT 13 U/L (7.0-40); AST/SGOT 11 U/L (<34); BILIRUBIN,DIRECT 0.1 MG/DL (<0.4); BILIRUBIN,TOTAL 0.3 MG/DL (0.3-1.2); BLOOD UREA NITROGEN 13 MG/DL (9-23); CALCIUM LEVEL 8.5 MG/DL (8.5-10.1); CARBON DIOXIDE LEVEL 22 MMOL/L (20-31); CHLORIDE LEVEL 109 MMOL/L (98-107); CREATININE FOR GFR 0.56 MG/DL (0.70-1.30); GLOMERULAR FILTRATION RATE > 60.0 (>60); GLUCOSE, FASTING 84 MG/DL (60-100); POTASSIUM SERUM 3.8 MMOL/L (3.5-5.1); SODIUM LEVEL 138 MMOL/L (136-145); TOTAL PROTEIN 6.6 G/DL (5.7-8.2)
[2023-09-23 01:18] LABS: THYROID STIMULATING HORMONE 5.891 uIU/ML (0.55-4.78)
[2023-09-23] MEDS: estradioL 1 MG TAB PO SCH (09:48)
[2023-09-23] MEDS: CitaloPRAM (CeleXA) 20 MG TAB PO SCH (09:48)
[2023-09-23] MEDS: ARIPiprazole 10 MG TAB PO SCH (09:48)
[2023-09-23] MEDS: SPIRONOLACTONE 50 MG TAB PO SCH (09:56)
[2023-09-23] MEDS: TOPIRAMATE (TopAMAX) 100 MG TAB PO SCH (09:56)
[2023-09-23] MEDS ORDERED: SPIRONOLACTONE 50 MG TAB PO SCH (17:00)
[2023-09-23] MEDS ORDERED: CITA20TA7 PO (18:39)
[2023-09-23] MEDS ORDERED: ARIP10TA32 PO (18:39)
[2023-09-23] MEDS ORDERED: HOME MED LIST COMPLETE! XX SCH (19:05)
[2023-09-23] MEDS ORDERED: TOPIRAMATE (TopAMAX) 100 MG TAB PO ONE (21:00)
[2023-09-23] MEDS: traZODone 50 MG TAB PO SCH (21:05)
[2023-09-24] MEDS ORDERED: traZODone 50 MG TAB PO PRN (13:45)
[2023-09-24] MEDS ORDERED: OLANZapine 5 MG TAB PO PRN (13:45)
[2023-09-24] MEDS ORDERED: IBUPROFEN 400MG TAB PO PRN (13:45)
[2023-09-24] MEDS ORDERED: MOM 30ML SUSPENSION UDC PO PRN (13:45)
[2023-09-24] MEDS ORDERED: ACETAMINOPHEN TAB 650MG DOSE (2X325MG) PO PRN (13:45)
[2023-09-24] MEDS ORDERED: diphenhydrAMINE 25MG CAP PO PRN (13:45)
[2023-09-24 18:37] VITALS: BP 115/62; TEMP 97.7; O2SAT 98
[2023-09-25] MEDS: MAALOX 30 ML SUSP *UDC PO PRN (03:12)
[2023-09-25 06:44] VITALS: BP 115/53; TEMP 97.9; O2SAT 97
[2023-09-25 11:50] VITALS: BP 132/69; TEMP 98.1; O2SAT 97
[2023-09-25] MEDS: OLANZapine ORAL DISINTEGRATING TAB 5MG PO PRN (13:20)
[2023-09-25 15:37] VITALS: BP 126/61; TEMP 97.6
[2023-09-26 06:30] VITALS: BP 125/56; TEMP 97.8; O2SAT 97
[2023-09-26] MEDS: ONDANSETRON 4MG ORAL DISINTEGRATING TAB PO PRN (13:50)
[2023-09-26 18:09] VITALS: BP 115/64; TEMP 98.1
[2023-09-27 06:28] VITALS: BP 117/56; TEMP 97.8
[2023-09-27 08:41] LABS: FREE T4 0.92 NG/DL (0.89-1.76); THYROID STIMULATING HORMONE 2.674 uIU/ML (0.55-4.78)
[2023-09-27 15:38] VITALS: BP 130/70; TEMP 98.3
[2023-09-28 06:05] VITALS: BP 106/58; TEMP 97.4
[2023-09-28 14:36] VITALS: BP 114/62; TEMP 98.2; O2SAT 98
[2023-09-29 06:43] VITALS: BP 106/53; TEMP 97.8; O2SAT 97
[2023-09-29] MEDS: hydrOXYzine 50 MG TAB PO PRN (12:54)
[2023-09-29 18:30] VITALS: BP_SYST 128; BP_SYST 95; BP_DIAS 50; BP_DIAS 76; TEMP 97.8; TEMP 98.2; O2SAT 97
[2023-09-30 06:33] VITALS: BP 109/50; TEMP 97.5; O2SAT 98
[2023-09-30 17:20] VITALS: BP 121/60; TEMP 98; O2SAT 98
[2023-10-01 06:31] VITALS: BP 116/54; TEMP 97.2; O2SAT 99
[2023-10-01] MEDS ORDERED: ARIP10TA32 PO (09:14)
[2023-10-01] MEDS ORDERED: HYDR50TA70 PO (09:14)
[2023-10-01] MEDS ORDERED: ESTR2TAB3 PO (09:14)
[2023-10-01] MEDS ORDERED: CITA20TA7 PO (09:14)
[2023-10-01] MEDS ORDERED: ESTR1TAB3 PO (09:42)
[2023-10-01] MEDS ORDERED: TOPA100T12 PO (09:42)
[2023-10-01] MEDS ORDERED: TRAZ-252 PO (09:42)
[2023-10-01] MEDS ORDERED: ALDA50TA2 PO (09:42)
[2023-10-01 12:33] VITALS: BP 116/54; TEMP 97.2; O2SAT 99
== END 2023-10-01 13:19 | disposition home or self-care (01) | DRG 750 ==
LOC: M ED 00:14 → M ED INP 09-24 13:41 → M PSY 09-24 17:20
PROVIDERS: ADMIT Student in an Organized Health Care Education/Training Program; ATTEND Student in an Organized Health Care Education/Training Program
DX: F25.9 Schizoaffective disorder, unspecified (principal); F79 Unspecified intellectual disabilities; F41.9 Anxiety disorder, unspecified; Z59.01 Sheltered homelessness; F17.200 Nicotine dependence, unspecified, uncomplicated; F60.3 Borderline personality disorder; F60.7 Dependent personality disorder; R94.6 Abnormal results of thyroid function studies; F64.9 Gender identity disorder, unspecified; Z79.899 Other long term (current) drug therapy; Z56.0 Unemployment, unspecified

== ENCOUNTER 2023-10-11 17:38 | Emergency (ER) | payer OTHER, MEDICAID ==
[~2023-10-11] VITALS: Ht 154.9 cm; Wt 58.1 kg
[~2023-10-11 17:38] MED LIST changes: +ALDA50TA2 PO; +ARIP10TA32 PO; +CITA20TA7 PO; +ESTR1TAB3 PO; +TOPA100T12 PO; +TRAZ-252 PO
[2023-10-11 18:05] LABS: HEMATOCRIT 44.9 % (42.0-52.0); HEMOGLOBIN 15.4 g/dl (13.5-17.5); MEAN CORPUSCULAR HEMOGLOBIN 29.8 pg (27.0-33.0); MEAN CORPUSCULAR HGB CONC 34.3 g/dl (32.0-36.5); PLATELET COUNT, AUTOMATED 315 10^3/uL (150-450); RED BLOOD COUNT 5.16 10^6/uL (4.30-6.10); WHITE BLOOD COUNT 9.7 10^3/uL (4.0-10.0)
[2023-10-11 18:38] LABS: ETHYL ALCOHOL (ETHANOL) < 0.003 % (0.000-0.010)
[2023-10-11 18:40] LABS: ALBUMIN 4.2 G/DL (3.2-5.2); ALKALINE PHOSPHATASE 70 U/L (46-116); ALT/SGPT 16 U/L (7.0-40); AST/SGOT 14 U/L (<34); BILIRUBIN,DIRECT 0.2 MG/DL (<0.4); BILIRUBIN,TOTAL 0.5 MG/DL (0.3-1.2); BLOOD UREA NITROGEN 6 MG/DL (9-23); CALCIUM LEVEL 9.2 MG/DL (8.5-10.1); CARBON DIOXIDE LEVEL 23 MMOL/L (20-31); CHLORIDE LEVEL 109 MMOL/L (98-107); CREATININE FOR GFR 0.59 MG/DL (0.70-1.30); GLOMERULAR FILTRATION RATE > 60.0 (>60); GLUCOSE, FASTING 133 MG/DL (60-100); POTASSIUM SERUM 3.7 MMOL/L (3.5-5.1); SALICYLATE LEVEL < 3.0 MG/DL (<30); SODIUM LEVEL 138 MMOL/L (136-145); TOTAL PROTEIN 6.9 G/DL (5.7-8.2)
[2023-10-11 18:41] LABS: THYROID STIMULATING HORMONE 4.821 uIU/ML (0.55-4.78)
[2023-10-11 18:47] LABS: AMPHETAMINES LEVEL URINE NEGATIVE (NEGATIVE); BARBITURATES URINE NEGATIVE (NEGATIVE); BENZODIAZEPINES URINE NEGATIVE (NEGATIVE); CANNABINOIDS URINE NEGATIVE (NEGATIVE); COCAINE METABOLITE URINE NEGATIVE (NEGATIVE); METHADONE URINE NEGATIVE (NEGATIVE); OPIATES URINE NEGATIVE (NEGATIVE); PHENCYCLIDINE URINE NEGATIVE (NEGATIVE)
[2023-10-11] MEDS ORDERED: TRAZ1TAB10 PO (22:22)
[2023-10-11] MEDS ORDERED: ABIL1INJ2 IM (22:22)
[2023-10-11] MEDS ORDERED: TOPI100T9 PO (22:22)
[2023-10-11] MEDS ORDERED: HYDR50TA70 PO (22:22)
[2023-10-11] MEDS ORDERED: ABIL10TA9 PO (22:22)
[2023-10-11] MEDS ORDERED: HOME MED LIST COMPLETE! XX SCH (22:25)
[2023-10-12 08:40] VITALS: BP 144/63; TEMP 97; O2SAT 99
== END 2023-10-12 08:44 | disposition home or self-care (01) ==
LOC: M ED 17:38
DX: F43.0 Acute stress reaction (principal); F12.10 Cannabis abuse, uncomplicated; Z79.899 Other long term (current) drug therapy

== ENCOUNTER 2023-10-12 12:56 | Inpatient (IN) | payer OTHER, MEDICAID ==
[~2023-10-12] VITALS: Ht 154.9 cm; Wt 57.7 kg
[~2023-10-12 12:56] MED LIST changes: +ABIL1INJ2 IM; +TOPI100T9 PO; +TRAZ1TAB10 PO
[2023-10-12 14:05] LABS: HEMATOCRIT 45.6 % (42.0-52.0); HEMOGLOBIN 15.5 g/dl (13.5-17.5); MEAN CORPUSCULAR HEMOGLOBIN 29.8 pg (27.0-33.0); MEAN CORPUSCULAR VOLUME 87.7 fl (80.0-96.0); PLATELET COUNT, AUTOMATED 304 10^3/uL (150-450); WHITE BLOOD COUNT 8.1 10^3/uL (4.0-10.0)
[2023-10-12 14:24] LABS: AMPHETAMINES LEVEL URINE NEGATIVE (NEGATIVE); BARBITURATES URINE NEGATIVE (NEGATIVE); BENZODIAZEPINES URINE NEGATIVE (NEGATIVE); CANNABINOIDS URINE NEGATIVE (NEGATIVE); COCAINE METABOLITE URINE NEGATIVE (NEGATIVE); METHADONE URINE NEGATIVE (NEGATIVE); OPIATES URINE NEGATIVE (NEGATIVE); PHENCYCLIDINE URINE NEGATIVE (NEGATIVE)
[2023-10-12 14:26] LABS: ETHYL ALCOHOL (ETHANOL) < 0.003 % (0.000-0.010)
[2023-10-12 14:28] LABS: SALICYLATE LEVEL < 3.0 MG/DL (<30)
[2023-10-12 14:36] LABS: ALBUMIN 4.4 G/DL (3.2-5.2); ALKALINE PHOSPHATASE 71 U/L (46-116); ALT/SGPT 13 U/L (7.0-40); AST/SGOT 13 U/L (<34); BILIRUBIN,DIRECT 0.1 MG/DL (<0.4); BILIRUBIN,TOTAL 0.4 MG/DL (0.3-1.2); BLOOD UREA NITROGEN 10 MG/DL (9-23); CALCIUM LEVEL 9.3 MG/DL (8.5-10.1); CARBON DIOXIDE LEVEL 22 MMOL/L (20-31); CHLORIDE LEVEL 108 MMOL/L (98-107); CREATININE FOR GFR 0.57 MG/DL (0.70-1.30); GLOMERULAR FILTRATION RATE > 60.0 (>60); GLUCOSE, FASTING 88 MG/DL (60-100); POTASSIUM SERUM 4.1 MMOL/L (3.5-5.1); SODIUM LEVEL 139 MMOL/L (136-145)
[2023-10-12] MEDS ORDERED: MAALOX 30 ML SUSP *UDC PO PRN (15:45)
[2023-10-12] MEDS ORDERED: MOM 30ML SUSPENSION UDC PO PRN (15:45)
[2023-10-12] MEDS ORDERED: HOME MED LIST COMPLETE! XX SCH (16:55)
[2023-10-12 20:09] VITALS: BP 127/74; TEMP 97.2; O2SAT 98
[2023-10-12] MEDS: traZODone 50 MG TAB PO PRN (20:10)
[2023-10-13 06:33] VITALS: BP 106/59; TEMP 97.6; O2SAT 97
[2023-10-13] MEDS: SPIRONOLACTONE 50 MG TAB PO SCH (11:59)
[2023-10-13] MEDS: CitaloPRAM (CeleXA) 20 MG TAB PO SCH (12:00)
[2023-10-13] MEDS: estradioL 1 MG TAB PO SCH (12:00)
[2023-10-13] MEDS: TOPIRAMATE (TopAMAX) 100 MG TAB PO SCH (12:00)
[2023-10-13 16:00] VITALS: BP 126/69; TEMP 97.9; O2SAT 98
[2023-10-14 06:28] VITALS: BP 119/63; TEMP 97.3; O2SAT 97
[2023-10-14 16:19] VITALS: BP 125/68; TEMP 97.8; O2SAT 98
[2023-10-14] MEDS: traZODone 50 MG TAB PO SCH (20:01)
[2023-10-15] MEDS: IBUPROFEN 400MG TAB PO PRN (05:51)
[2023-10-15 05:54] VITALS: BP 120/59; TEMP 98.1; O2SAT 97
[2023-10-15] MEDS: ACETAMINOPHEN TAB 650MG DOSE (2X325MG) PO PRN (11:33)
[2023-10-15] MEDS: ARIPiprazole MONOHYDRATE 400 MG INJ (ABILIFY) PT CHG ONE IM (14:34)
[2023-10-15 18:09] VITALS: BP 120/56; TEMP 98.4
[2023-10-16] MEDS: diphenhydrAMINE 25MG CAP PO PRN (04:50)
[2023-10-16 06:07] VITALS: BP 104/56; TEMP 98.5; O2SAT 96
[2023-10-16 18:28] VITALS: BP 117/57; TEMP 98.5
[2023-10-17 05:55] VITALS: BP 115/59; TEMP 97.6; O2SAT 96
[2023-10-17 17:16] VITALS: BP 119/59; TEMP 97.4; O2SAT 98
[2023-10-18 06:22] VITALS: BP 124/61; TEMP 97; O2SAT 98
[2023-10-18 16:26] VITALS: BP 161/89; TEMP 97.2; O2SAT 97
[2023-10-18 16:28] VITALS: BP 118/57; TEMP 98.9; O2SAT 98
[2023-10-19 06:35] VITALS: BP 105/62; TEMP 97.4; O2SAT 96
[2023-10-19] MEDS ORDERED: ABIL1TAB11 PO (08:21)
[2023-10-19] MEDS ORDERED: ALDA50TA2 PO (08:21)
== END 2023-10-19 12:49 | disposition home or self-care (01) | DRG 750 ==
LOC: M ED 13:01 → M ED INP 15:45 → M PSY 19:49
PROVIDERS: ADMIT Student in an Organized Health Care Education/Training Program; ATTEND Student in an Organized Health Care Education/Training Program
DX: F25.9 Schizoaffective disorder, unspecified (principal); G40.909 Epilepsy, unspecified, not intractable, without status epilepticus; R45.851 Suicidal ideations; F17.210 Nicotine dependence, cigarettes, uncomplicated; F64.9 Gender identity disorder, unspecified; F60.3 Borderline personality disorder; F60.7 Dependent personality disorder; F41.9 Anxiety disorder, unspecified; Z56.0 Unemployment, unspecified; Z59.00 Homelessness unspecified; Z79.899 Other long term (current) drug therapy

== ENCOUNTER 2023-11-29 19:29 | Emergency (ER) | payer MEDICAID, OTHER ==
[~2023-11-29] VITALS: Ht 154.9 cm; Wt 62.5 kg
[~2023-11-29 19:29] MED LIST changes: +ABIL1TAB11 PO
[2023-11-29 20:43] LABS: BASO # 0.1 10^3/uL (0.0-0.2); BASO % 0.5 % (0.0-1.0); EOS % 0.4 % (0.0-3.0); HEMATOCRIT 43.4 % (42.0-52.0); HEMOGLOBIN 15.4 g/dl (13.5-17.5); LYMPH % 18.1 % (24.0-44.0); MEAN CORPUSCULAR HEMOGLOBIN 30.3 pg (27.0-33.0); MEAN CORPUSCULAR HGB CONC 35.5 g/dl (32.0-36.5); MEAN CORPUSCULAR VOLUME 85.3 fl (80.0-96.0); MONO % 9.2 % (2.0-8.0); NEUTROPHILS # 7.7 10^3/uL (1.5-8.5); PLATELET COUNT, AUTOMATED 286 10^3/uL (150-450); RED BLOOD COUNT 5.09 10^6/uL (4.30-6.10); WHITE BLOOD COUNT 10.9 10^3/uL (4.0-10.0)
[2023-11-29 21:05] LABS: BLOOD UREA NITROGEN 13 MG/DL (9-23); CARBON DIOXIDE LEVEL 20 MMOL/L (20-31); CHLORIDE LEVEL 110 MMOL/L (98-107); CREATININE FOR GFR 0.73 MG/DL (0.70-1.30); GLOMERULAR FILTRATION RATE > 60.0 (>60); GLUCOSE, FASTING 110 MG/DL (60-100); POTASSIUM SERUM 3.5 MMOL/L (3.5-5.1); SODIUM LEVEL 138 MMOL/L (136-145)
[2023-11-29 21:06] LABS: CPK CREATINE PHOSPHOKINASE 217 U/L (46-171); MB/CK RELATIVE INDEX 0.92 (< OR =4)
[2023-11-29 22:17] LABS: CK-MB VALUE MASS 2.5 NG/ML (<3.6)
[2023-11-29] MEDS ORDERED: ISOVUE-370 76% 100ML VIAL As Ordered ONE (22:42)
[2023-11-29] MEDS: ASPIRIN 81MG CHEW TABLET PO ONE (22:46)
[2023-11-29 23:14] VITALS: TEMP 97; O2SAT 97
[2023-11-29 23:15] VITALS: BP 113/59
[2023-11-30] MEDS ORDERED: ARIP1TAB6 PO (09:51)
[2023-11-30] MEDS ORDERED: QUET100T2 PO (09:51)
== END 2023-11-29 23:41 | disposition left against medical advice (07) ==
LOC: M ED 19:29
DX: I21.4 Non-ST elevation (NSTEMI) myocardial infarction (principal); I45.10 Unspecified right bundle-branch block; F31.9 Bipolar disorder, unspecified; Z79.899 Other long term (current) drug therapy; Z53.9 Procedure and treatment not carried out, unspecified reason
CPT/HCPCS: 36415; 71275; 80048; 82550; 82553; 84484; 85025; 93005; 99284; Q9967

== ENCOUNTER 2023-11-30 01:58 | Observation (INO) | payer OTHER ==
[~2023-11-30] VITALS: Ht 154.9 cm; Wt 61.9 kg
[2023-11-30 06:22] LABS: BASO # 0.1 10^3/uL (0.0-0.2); BASO % 0.6 % (0.0-1.0); EOS % 0.4 % (0.0-3.0); HEMATOCRIT 45.1 % (42.0-52.0); HEMOGLOBIN 15.8 g/dl (13.5-17.5); LYMPH # 2.2 10^3/uL (1.5-5.0); LYMPH % 20.1 % (24.0-44.0); MEAN CORPUSCULAR HEMOGLOBIN 29.9 pg (27.0-33.0); MEAN CORPUSCULAR VOLUME 85.3 fl (80.0-96.0); MONO # 1.2 10^3/uL (0.0-0.8); NEUTROPHILS # 7.2 10^3/uL (1.5-8.5); NEUTROPHILS % 67.2 % (36.0-66.0); PLATELET COUNT, AUTOMATED 287 10^3/uL (150-450); RED BLOOD COUNT 5.29 10^6/uL (4.30-6.10); WHITE BLOOD COUNT 10.7 10^3/uL (4.0-10.0)
[2023-11-30 06:33] LABS: INR 1.2; PARTIAL THROMBOPLASTIN TIME 30.1 SECONDS (24.8-34.2); PROTHROMBIN TIME 14.8 SECONDS (12.5-14.5)
[2023-11-30 07:01] LABS: CK-MB VALUE MASS 6.2 NG/ML (<3.6)
[2023-11-30 07:07] LABS: LIPASE 24 U/L (12-53)
[2023-11-30 07:09] LABS: ALBUMIN 4.1 G/DL (3.2-5.2); ALKALINE PHOSPHATASE 87 U/L (46-116); ALT/SGPT 15 U/L (7.0-40); AST/SGOT 23 U/L (<34); BILIRUBIN,DIRECT 0.2 MG/DL (<0.4); BILIRUBIN,TOTAL 0.6 MG/DL (0.3-1.2); BLOOD UREA NITROGEN 12 MG/DL (9-23); CARBON DIOXIDE LEVEL 19 MMOL/L (20-31); CHLORIDE LEVEL 110 MMOL/L (98-107); CREATININE FOR GFR 0.68 MG/DL (0.70-1.30); GLOMERULAR FILTRATION RATE > 60.0 (>60); GLUCOSE, FASTING 103 MG/DL (60-100); POTASSIUM SERUM 3.9 MMOL/L (3.5-5.1); SODIUM LEVEL 139 MMOL/L (136-145)
[2023-11-30 07:12] LABS: CPK CREATINE PHOSPHOKINASE 570 U/L (46-171); MB/CK RELATIVE INDEX 1.08 (< OR =4)
[2023-11-30 08:27] LABS: FREE T4 1.04 NG/DL (0.89-1.76)
[2023-11-30] MEDS ORDERED: QUET100T2 PO (09:51)
[2023-11-30] MEDS ORDERED: ARIP1TAB6 PO (09:51)
[2023-11-30] MEDS ORDERED: HOME MED LIST COMPLETE! XX SCH (09:55)
[2023-11-30] MEDS ORDERED: ACETAMINOPHEN TAB 650MG DOSE (2X325MG) PO PRN (10:05)
[2023-11-30] MEDS: NS 1,000 ML IV SCH (10:36)
[2023-11-30] MEDS: ENOXAPARIN 40MG/0.4ML SYRINGE (J1650 PER 10MG) SC SCH (10:36)
[2023-11-30 10:57] LABS: CK-MB VALUE MASS 7.1 NG/ML (<3.6)
[2023-11-30 11:00] LABS: MB/CK RELATIVE INDEX 1.05 (< OR =4)
[2023-11-30 11:08] LABS: METHADONE URINE NEGATIVE (NEGATIVE); OPIATES URINE NEGATIVE (NEGATIVE); PHENCYCLIDINE URINE NEGATIVE (NEGATIVE)
[2023-11-30 11:09] LABS: AMPHETAMINES LEVEL URINE NEGATIVE (NEGATIVE); BARBITURATES URINE NEGATIVE (NEGATIVE); BENZODIAZEPINES URINE NEGATIVE (NEGATIVE); CANNABINOIDS URINE NEGATIVE (NEGATIVE); COCAINE METABOLITE URINE NEGATIVE (NEGATIVE)
[2023-11-30 12:00] VITALS: BP 125/77; TEMP 98.2; O2SAT 99
[2023-11-30] MEDS: NS 0.45% 1,000 ML IV SCH (12:10)
[2023-11-30] MEDS: TOPIRAMATE (TopAMAX) 100 MG TAB PO SCH (12:17)
[2023-11-30] MEDS: SPIRONOLACTONE 50 MG TAB PO SCH (12:17)
[2023-11-30] MEDS: ASPIRIN 81MG ENTERIC TABLET PO SCH (12:17)
[2023-11-30] MEDS: CitaloPRAM (CeleXA) 10 MG TABLET PO SCH (12:18)
[2023-11-30 14:00] VITALS: BP 109/59; TEMP 98.2; O2SAT 98
[2023-11-30] MEDS: QUEtiapine FUMARATE 100 MG TAB PO SCH (20:44)
[2023-11-30 22:00] VITALS: BP 117/75; TEMP 97.7; O2SAT 97
[2023-12-01 05:55] VITALS: BP 119/71; TEMP 97.5; O2SAT 99
[2023-12-01 06:05] LABS: HEMATOCRIT 43.1 % (42.0-52.0); HEMOGLOBIN 14.9 g/dl (13.5-17.5); MEAN CORPUSCULAR HEMOGLOBIN 30.1 pg (27.0-33.0); MEAN CORPUSCULAR HGB CONC 34.6 g/dl (32.0-36.5); MEAN CORPUSCULAR VOLUME 87.1 fl (80.0-96.0); PLATELET COUNT, AUTOMATED 248 10^3/uL (150-450); RED BLOOD COUNT 4.95 10^6/uL (4.30-6.10); WHITE BLOOD COUNT 6.6 10^3/uL (4.0-10.0)
[2023-12-01 06:29] LABS: ALBUMIN 3.6 G/DL (3.2-5.2); ALKALINE PHOSPHATASE 81 U/L (46-116); ALT/SGPT 14 U/L (7.0-40); AST/SGOT 22 U/L (<34); BILIRUBIN,TOTAL 0.3 MG/DL (0.3-1.2); BLOOD UREA NITROGEN 7 MG/DL (9-23); CALCIUM LEVEL 8.5 MG/DL (8.5-10.1); CARBON DIOXIDE LEVEL 20 MMOL/L (20-31); CHLORIDE LEVEL 112 MMOL/L (98-107); CREATININE FOR GFR 0.71 MG/DL (0.70-1.30); GLOMERULAR FILTRATION RATE > 60.0 (>60); GLUCOSE, FASTING 87 MG/DL (60-100); POTASSIUM SERUM 3.6 MMOL/L (3.5-5.1); SODIUM LEVEL 140 MMOL/L (136-145); TOTAL PROTEIN 6.3 G/DL (5.7-8.2)
[2023-12-01 10:31] LABS: CK-MB VALUE MASS 3.8 NG/ML (<3.6)
[2023-12-01] MEDS ORDERED: OMEP1CAP73 PO (10:31)
[2023-12-01 10:32] LABS: CPK CREATINE PHOSPHOKINASE 544 U/L (46-171); MB/CK RELATIVE INDEX 0.69 (< OR =4)
[2023-12-01] MEDS ORDERED: OMEP40CA4 PO ×2 (10:34→23:42)
[2023-12-01 12:45] VITALS: BP 110/67; TEMP 98.8; O2SAT 100
[2023-12-01] MEDS ORDERED: DIVA500T9 PO (23:42)
[2023-12-01] MEDS ORDERED: NALT50TA4 PO (23:42)
[2023-12-01] MEDS ORDERED: CHLO25TA88 PO (23:42)
[2023-12-01] MEDS ORDERED: ABIL400I IM (23:42)
[2023-12-01] MEDS ORDERED: CHLO100T30 PO (23:42)
== END 2023-12-01 13:53 | disposition home or self-care (01) ==
LOC: M ED 01:58 → M ED INP 10:04 → M MSPAV 11:58
PROVIDERS: ADMIT Internal Medicine; ATTEND Internal Medicine
DX: R07.89 Other chest pain (principal); M62.82 Rhabdomyolysis; F41.9 Anxiety disorder, unspecified; F32.A Depression, unspecified; R79.89 Other specified abnormal findings of blood chemistry; F25.9 Schizoaffective disorder, unspecified; G40.909 Epilepsy, unspecified, not intractable, without status epilepticus; F17.210 Nicotine dependence, cigarettes, uncomplicated; Z85.841 Personal history of malignant neoplasm of brain; I45.10 Unspecified right bundle-branch block; R53.83 Other fatigue; R74.8 Abnormal levels of other serum enzymes; F64.9 Gender identity disorder, unspecified; Z59.00 Homelessness unspecified; Z79.899 Other long term (current) drug therapy; Z92.241 Personal history of systemic steroid therapy
CPT/HCPCS: 36415; 80048; 80053; 80076; 80307; 82550; 82553; 83605; 83690; 84439; 84443; 84484; 85025; 85027; 85610; 85730; 93005; 93041; 94760; 96360; 96361; 96372; 99285; J1650

== ENCOUNTER 2023-12-01 21:14 | Emergency (ER) | payer OTHER ==
[~2023-12-01] VITALS: Ht 154.9 cm; Wt 61.3 kg
[~2023-12-01 21:14] MED LIST changes: +OMEP1CAP73 PO; +OMEP40CA4 PO; +QUET100T2 PO
[2023-12-01 22:02] LABS: BASO # 0.1 10^3/uL (0.0-0.2); BASO % 0.5 % (0.0-1.0); EOS # 0.1 10^3/uL (0.0-0.5); EOS % 0.9 % (0.0-3.0); HEMOGLOBIN 14.8 g/dl (13.5-17.5); LYMPH % 20.6 % (24.0-44.0); MEAN CORPUSCULAR HEMOGLOBIN 30.4 pg (27.0-33.0); MEAN CORPUSCULAR HGB CONC 35.2 g/dl (32.0-36.5); MEAN CORPUSCULAR VOLUME 86.2 fl (80.0-96.0); MONO # 0.9 10^3/uL (0.0-0.8); MONO % 9.7 % (2.0-8.0); NEUTROPHILS # 6.5 10^3/uL (1.5-8.5); NEUTROPHILS % 67.7 % (36.0-66.0); PLATELET COUNT, AUTOMATED 266 10^3/uL (150-450); RED BLOOD COUNT 4.87 10^6/uL (4.30-6.10); WHITE BLOOD COUNT 9.6 10^3/uL (4.0-10.0)
[2023-12-01 22:31] LABS: ALKALINE PHOSPHATASE 84 U/L (46-116); ALT/SGPT 15 U/L (7.0-40); AST/SGOT 31 U/L (<34); BILIRUBIN,DIRECT < 0.1 MG/DL (<0.4); BILIRUBIN,TOTAL 0.3 MG/DL (0.3-1.2); BLOOD UREA NITROGEN 7 MG/DL (9-23); CALCIUM LEVEL 8.9 MG/DL (8.5-10.1); CARBON DIOXIDE LEVEL 24 MMOL/L (20-31); CHLORIDE LEVEL 109 MMOL/L (98-107); CK-MB VALUE MASS 4.3 NG/ML (<3.6); CPK CREATINE PHOSPHOKINASE 587 U/L (46-171); CREATININE FOR GFR 0.74 MG/DL (0.70-1.30); FREE T4 1.01 NG/DL (0.89-1.76); GLOMERULAR FILTRATION RATE > 60.0 (>60); GLUCOSE, FASTING 94 MG/DL (60-100); MB/CK RELATIVE INDEX 0.73 (< OR =4); POTASSIUM SERUM 3.7 MMOL/L (3.5-5.1); SODIUM LEVEL 139 MMOL/L (136-145); THYROID STIMULATING HORMONE 6.471 uIU/ML (0.55-4.78); TOTAL PROTEIN 6.7 G/DL (5.7-8.2)
[2023-12-01] MEDS ORDERED: CHLO100T30 PO (23:42)
[2023-12-01] MEDS ORDERED: OMEP40CA4 PO (23:42)
[2023-12-01] MEDS ORDERED: DIVA500T9 PO (23:42)
[2023-12-01] MEDS ORDERED: CHLO25TA88 PO (23:42)
[2023-12-01] MEDS ORDERED: NALT50TA4 PO (23:42)
[2023-12-01] MEDS ORDERED: ABIL400I IM (23:42)
[2023-12-01] MEDS ORDERED: HOME MED LIST COMPLETE! XX SCH (23:45)
[2023-12-01 23:46] LABS: AMPHETAMINES LEVEL URINE NEGATIVE (NEGATIVE); BARBITURATES URINE NEGATIVE (NEGATIVE); BENZODIAZEPINES URINE NEGATIVE (NEGATIVE); CANNABINOIDS URINE NEGATIVE (NEGATIVE); COCAINE METABOLITE URINE NEGATIVE (NEGATIVE); METHADONE URINE NEGATIVE (NEGATIVE); OPIATES URINE NEGATIVE (NEGATIVE); PHENCYCLIDINE URINE NEGATIVE (NEGATIVE)
[2023-12-01 23:49] LABS: CK-MB VALUE MASS 4.2 NG/ML (<3.6)
[2023-12-01 23:50] LABS: MB/CK RELATIVE INDEX 0.75 (< OR =4)
[2023-12-02 00:40] VITALS: BP 135/78; TEMP 98.1; O2SAT 99
== END 2023-12-02 00:43 | disposition home or self-care (01) ==
LOC: M ED 21:14 → EDBD 21:14 → M ED 12-02 00:43
DX: R07.89 Other chest pain (principal); I45.10 Unspecified right bundle-branch block; F41.9 Anxiety disorder, unspecified; F32.A Depression, unspecified; F17.210 Nicotine dependence, cigarettes, uncomplicated; Z79.899 Other long term (current) drug therapy

== ENCOUNTER 2023-12-07 17:07 | Emergency (ER) | payer OTHER ==
[~2023-12-07] VITALS: Ht 154.9 cm; Wt 61.5 kg
[~2023-12-07 17:07] MED LIST changes: +CHLO100T30 PO; +CHLO25TA88 PO; +DIVA500T9 PO; +NALT50TA4 PO
[2023-12-07] MEDS ORDERED: LIDOCAINE 3% TOP (19:44)
[2023-12-07] MEDS ORDERED: IBUP-1022 PO (19:45)
[2023-12-07 20:02] VITALS: BP 131/75; TEMP 99.9; O2SAT 99
== END 2023-12-07 19:50 | disposition home or self-care (01) ==
LOC: M ED 17:07
DX: L55.9 Sunburn, unspecified (principal); F31.9 Bipolar disorder, unspecified; Z88.8 Allergy status to other drugs, medicaments and biological substances; Z79.1 Long term (current) use of non-steroidal anti-inflammatories (NSAID); Z79.899 Other long term (current) drug therapy

== ENCOUNTER 2023-12-08 14:24 | Emergency (ER) | payer OTHER ==
[~2023-12-08] VITALS: Ht 154.9 cm; Wt 61.4 kg
[~2023-12-08 14:24] MED LIST changes: +IBUP-1022 PO; +LIDOCAINE 3% TOP
[2023-12-08 16:01] LABS: BASO % 0.3 % (0.0-1.0); EOS # 0.1 10^3/uL (0.0-0.5); EOS % 0.8 % (0.0-3.0); HEMATOCRIT 40.8 % (42.0-52.0); HEMOGLOBIN 14.3 g/dl (13.5-17.5); LYMPH # 1.7 10^3/uL (1.5-5.0); LYMPH % 17.1 % (24.0-44.0); MEAN CORPUSCULAR VOLUME 85.7 fl (80.0-96.0); MONO # 1.7 10^3/uL (0.0-0.8); MONO % 17.1 % (2.0-8.0); NEUTROPHILS # 6.2 10^3/uL (1.5-8.5); NEUTROPHILS % 64.1 % (36.0-66.0); PLATELET COUNT, AUTOMATED 275 10^3/uL (150-450); RED BLOOD COUNT 4.76 10^6/uL (4.30-6.10); WHITE BLOOD COUNT 9.7 10^3/uL (4.0-10.0)
[2023-12-08] MEDS: NS 1,000 ML IV SCH (16:06)
[2023-12-08 16:14] LABS: INR 1.21; PROTHROMBIN TIME 14.9 SECONDS (12.5-14.5)
[2023-12-08 16:22] LABS: LIPASE 22 U/L (12-53)
[2023-12-08 16:24] LABS: ALBUMIN 3.3 G/DL (3.2-5.2); ALKALINE PHOSPHATASE 68 U/L (46-116); ALT/SGPT 20 U/L (7.0-40); AST/SGOT 27 U/L (<34); BILIRUBIN,DIRECT 0.1 MG/DL (<0.4); BILIRUBIN,TOTAL 0.3 MG/DL (0.3-1.2); BLOOD UREA NITROGEN 10 MG/DL (9-23); CALCIUM LEVEL 8.2 MG/DL (8.5-10.1); CARBON DIOXIDE LEVEL 22 MMOL/L (20-31); CHLORIDE LEVEL 110 MMOL/L (98-107); CK-MB VALUE MASS 4.7 NG/ML (<3.6); GLOMERULAR FILTRATION RATE > 60.0 (>60); GLUCOSE, FASTING 100 MG/DL (60-100); POTASSIUM SERUM 3.7 MMOL/L (3.5-5.1); SODIUM LEVEL 139 MMOL/L (136-145); TOTAL PROTEIN 5.9 G/DL (5.7-8.2)
[2023-12-08 16:28] LABS: CPK CREATINE PHOSPHOKINASE 408 U/L (46-171); MB/CK RELATIVE INDEX 1.15 (< OR =4)
[2023-12-08] MEDS ORDERED: ISOVUE-370 76% 100ML VIAL As Ordered ONE (16:32)
[2023-12-08 17:27] LABS: CK-MB VALUE MASS 4.1 NG/ML (<3.6)
[2023-12-08 17:37] LABS: CPK CREATINE PHOSPHOKINASE 387 U/L (46-171); MB/CK RELATIVE INDEX 1.05 (< OR =4)
[2023-12-08 18:30] VITALS: BP 112/57; TEMP 98; O2SAT 99
== END 2023-12-08 18:30 | disposition home or self-care (01) ==
LOC: M ED 14:24 → EDBD 14:24 → M ED 18:30
DX: R07.9 Chest pain, unspecified (principal); I45.19 Other right bundle-branch block; F41.9 Anxiety disorder, unspecified; F32.A Depression, unspecified; F25.9 Schizoaffective disorder, unspecified; Z88.8 Allergy status to other drugs, medicaments and biological substances; Z79.899 Other long term (current) drug therapy; Z79.1 Long term (current) use of non-steroidal anti-inflammatories (NSAID)
CPT/HCPCS: 36415; 71045; 71275; 80048; 80076; 82550; 82553; 83690; 84484; 85025; 85610; 93005; 93041; 93970; 94760; 99285; Q9967

== ENCOUNTER 2023-12-09 17:36 | Emergency (ER) | payer OTHER ==
[2023-12-09 18:12] LABS: HEMATOCRIT 41.3 % (42.0-52.0); HEMOGLOBIN 14.1 g/dl (13.5-17.5); MEAN CORPUSCULAR HEMOGLOBIN 30.3 pg (27.0-33.0); MEAN CORPUSCULAR HGB CONC 34.1 g/dl (32.0-36.5); MEAN CORPUSCULAR VOLUME 88.6 fl (80.0-96.0); PLATELET COUNT, AUTOMATED 300 10^3/uL (150-450); RED BLOOD COUNT 4.66 10^6/uL (4.30-6.10); WHITE BLOOD COUNT 8.7 10^3/uL (4.0-10.0)
[2023-12-09 18:29] LABS: AMPHETAMINES LEVEL URINE NEGATIVE (NEGATIVE)
[2023-12-09 18:30] LABS: BARBITURATES URINE NEGATIVE (NEGATIVE); BENZODIAZEPINES URINE NEGATIVE (NEGATIVE); COCAINE METABOLITE URINE NEGATIVE (NEGATIVE); METHADONE URINE NEGATIVE (NEGATIVE); OPIATES URINE NEGATIVE (NEGATIVE); PHENCYCLIDINE URINE NEGATIVE (NEGATIVE)
[2023-12-09 18:32] LABS: ETHYL ALCOHOL (ETHANOL) < 0.003 % (0.000-0.010)
[2023-12-09 18:33] LABS: CANNABINOIDS URINE POSITIVE (NEGATIVE); SALICYLATE LEVEL < 3.0 MG/DL (<30)
[2023-12-09 18:47] LABS: VALPROIC ACID (DEPAKOTE) < 3.0 UG/ML (50.0-100.0)
[2023-12-09 18:50] LABS: ALBUMIN 3.5 G/DL (3.2-5.2); ALKALINE PHOSPHATASE 68 U/L (46-116); ALT/SGPT 20 U/L (7.0-40); AST/SGOT 25 U/L (<34); BILIRUBIN,DIRECT < 0.1 MG/DL (<0.4); BILIRUBIN,TOTAL 0.2 MG/DL (0.3-1.2); BLOOD UREA NITROGEN 8 MG/DL (9-23); CALCIUM LEVEL 8.3 MG/DL (8.5-10.1); CARBON DIOXIDE LEVEL 23 MMOL/L (20-31); CHLORIDE LEVEL 111 MMOL/L (98-107); GLOMERULAR FILTRATION RATE > 60.0 (>60); GLUCOSE, FASTING 94 MG/DL (60-100); POTASSIUM SERUM 3.8 MMOL/L (3.5-5.1); SODIUM LEVEL 142 MMOL/L (136-145); THYROID STIMULATING HORMONE 4.389 uIU/ML (0.55-4.78); TOTAL PROTEIN 6.3 G/DL (5.7-8.2)
[2023-12-09 21:55] VITALS: BP 127/60; TEMP 98.8; O2SAT 98
== END 2023-12-09 22:00 | disposition home or self-care (01) ==
LOC: M ED 17:36
DX: F43.0 Acute stress reaction (principal); F32.A Depression, unspecified; F20.9 Schizophrenia, unspecified; F17.210 Nicotine dependence, cigarettes, uncomplicated; F12.10 Cannabis abuse, uncomplicated; F10.10 Alcohol abuse, uncomplicated; Z88.8 Allergy status to other drugs, medicaments and biological substances; Z79.1 Long term (current) use of non-steroidal anti-inflammatories (NSAID); Z79.899 Other long term (current) drug therapy

== ENCOUNTER 2023-12-17 15:33 | Inpatient (IN) | payer OTHER ==
[~2023-12-17] VITALS: Ht 157.5 cm; Wt 62.7 kg
[2023-12-17 16:36] LABS: HEMATOCRIT 43.6 % (42.0-52.0); HEMOGLOBIN 14.8 g/dl (13.5-17.5); MEAN CORPUSCULAR HEMOGLOBIN 29.9 pg (27.0-33.0); MEAN CORPUSCULAR HGB CONC 33.9 g/dl (32.0-36.5); MEAN CORPUSCULAR VOLUME 88.1 fl (80.0-96.0); PLATELET COUNT, AUTOMATED 325 10^3/uL (150-450); RED BLOOD COUNT 4.95 10^6/uL (4.30-6.10); WHITE BLOOD COUNT 9.7 10^3/uL (4.0-10.0)
[2023-12-17 17:03] LABS: AMPHETAMINES LEVEL URINE NEGATIVE (NEGATIVE); BARBITURATES URINE NEGATIVE (NEGATIVE); BENZODIAZEPINES URINE NEGATIVE (NEGATIVE); COCAINE METABOLITE URINE NEGATIVE (NEGATIVE); METHADONE URINE NEGATIVE (NEGATIVE); OPIATES URINE NEGATIVE (NEGATIVE); PHENCYCLIDINE URINE NEGATIVE (NEGATIVE)
[2023-12-17 17:05] LABS: ETHYL ALCOHOL (ETHANOL) < 0.003 % (0.000-0.010)
[2023-12-17 17:06] LABS: CANNABINOIDS URINE POSITIVE (NEGATIVE)
[2023-12-17 17:07] LABS: ALBUMIN 3.8 G/DL (3.2-5.2); ALKALINE PHOSPHATASE 72 U/L (46-116); ALT/SGPT 16 U/L (7.0-40); AST/SGOT < 8 U/L (<34); BILIRUBIN,DIRECT < 0.1 MG/DL (<0.4); BILIRUBIN,TOTAL 0.2 MG/DL (0.3-1.2); BLOOD UREA NITROGEN 17 MG/DL (9-23); CALCIUM LEVEL 9.3 MG/DL (8.5-10.1); CARBON DIOXIDE LEVEL 17 MMOL/L (20-31); CHLORIDE LEVEL 112 MMOL/L (98-107); CREATININE FOR GFR 0.72 MG/DL (0.70-1.30); GLOMERULAR FILTRATION RATE > 60.0 (>60); GLUCOSE, FASTING 98 MG/DL (60-100); POTASSIUM SERUM 4.3 MMOL/L (3.5-5.1); SALICYLATE LEVEL < 3.0 MG/DL (<30); SODIUM LEVEL 139 MMOL/L (136-145); TOTAL PROTEIN 7.1 G/DL (5.7-8.2)
[2023-12-17 17:09] LABS: THYROID STIMULATING HORMONE 1.362 uIU/ML (0.55-4.78)
[2023-12-17 19:06] LABS: VALPROIC ACID (DEPAKOTE) 68.3 UG/ML (50.0-100.0)
[2023-12-17] MEDS ORDERED: ACETAMINOPHEN TAB 650MG DOSE (2X325MG) PO PRN (22:05)
[2023-12-17] MEDS ORDERED: MOM 30ML SUSPENSION UDC PO PRN (22:05)
[2023-12-17] MEDS ORDERED: MAALOX 30 ML SUSP *UDC PO PRN (22:05)
[2023-12-17] MEDS ORDERED: diphenhydrAMINE 25MG CAP PO PRN (22:05)
[2023-12-17] MEDS ORDERED: traZODone 50 MG TAB PO PRN (22:05)
[2023-12-17] MEDS ORDERED: IBUPROFEN 400MG TAB PO PRN (22:05)
[2023-12-17] MEDS ORDERED: NICO-260 PO (23:14)
[2023-12-17] MEDS ORDERED: NICO1DIS9 TOP (23:14)
[2023-12-17] MEDS ORDERED: HOME MED LIST COMPLETE! XX SCH (23:15)
[2023-12-18] MEDS: QUEtiapine FUMARATE 100 MG TAB PO ONE (00:27)
[2023-12-18 01:11] VITALS: BP 136/65; TEMP 97.4; O2SAT 98
[2023-12-18 06:52] VITALS: BP 107/57; TEMP 97.2; O2SAT 97
[2023-12-18] MEDS ORDERED: NICOTINE 14 MG/24 HR TRANSDERMAL TOP PRN (10:25)
[2023-12-18] MEDS ORDERED: IBUPROFEN 600MG TAB PO PRN (10:25)
[2023-12-18] MEDS: NALTREXONE 50 MG TAB PO SCH (10:44)
[2023-12-18] MEDS: OMEPRAZOLE 20MG CAP PO SCH (10:45)
[2023-12-18] MEDS: CitaloPRAM (CeleXA) 20 MG TAB PO SCH (10:45)
[2023-12-18] MEDS: hydrOXYzine 50 MG TAB PO SCH (10:45)
[2023-12-18] MEDS: DIVALPROEX 500MG *ER* TAB PO SCH (10:45)
[2023-12-18 16:16] VITALS: BP 123/57; TEMP 97; O2SAT 96
[2023-12-18] MEDS: TOPIRAMATE (TopAMAX) 100 MG TAB PO SCH (20:39)
[2023-12-18] MEDS: QUEtiapine FUMARATE 100 MG TAB PO SCH (20:39)
[2023-12-18] MEDS: SPIRONOLACTONE 50 MG TAB PO SCH (20:39)
[2023-12-18] MEDS: traZODone 50 MG TAB PO SCH (20:39)
[2023-12-19 06:28] VITALS: BP 117/56; TEMP 98.1; O2SAT 99
== END 2023-12-19 11:28 | disposition home or self-care (01) | DRG 754 ==
LOC: M ED 15:33 → M ED INP 22:01 → M PSY 12-18 00:03
PROVIDERS: ADMIT Student in an Organized Health Care Education/Training Program; ATTEND Student in an Organized Health Care Education/Training Program
DX: F32.A Depression, unspecified (principal); F79 Unspecified intellectual disabilities; F17.210 Nicotine dependence, cigarettes, uncomplicated; F12.10 Cannabis abuse, uncomplicated; Z59.00 Homelessness unspecified; Z79.899 Other long term (current) drug therapy; Z91.048 Other nonmedicinal substance allergy status; Z56.0 Unemployment, unspecified; Z81.1 Family history of alcohol abuse and dependence

== ENCOUNTER → 2023-12-25 | Outpatient (REF) | payer OTHER, MEDICAID ==
[~2023-12-25] MED LIST changes: +NICO-260 PO; +NICO1DIS9 TOP
[2023-12-25 18:32] LABS: AMORPHOUS SEDIMENT SMALL (NEGATIVE); APPEARANCE, URINE TURBID (CLEAR); BACTERIA, URINE AUTO 1+ (NEGATIVE); BILIRUBIN, URINE AUTO NEGATIVE (NEGATIVE); BLOOD, URINE BLOOD NEGATIVE (NEGATIVE); COLOR, URINE AMBER (YELLOW); GLUCOSE, URINE (UA) AUTO NEGATIVE (NEGATIVE); KETONE, URINE AUTO NEGATIVE (NEGATIVE); LEUKOCYTE ESTERASE, URINE AUTO NEGATIVE (NEGATIVE); MUCUS, URINE SMALL (NEGATIVE); NITRITE, URINE AUTO NEGATIVE (NEGATIVE); PROTEIN, URINE AUTO NEGATIVE (NEGATIVE); RBC, URINE AUTO 0 /HPF (0-3); SPECIFIC GRAVITY URINE AUTO 1.016 (1.002-1.035); SQUAMOUS EPITHELIAL CELL UR AU 0 /HPF (0-6); UROBILINOGEN, URINE AUTO 0.2 mg/dL (0.0-2.0); WBC, URINE AUTO 0 /HPF (0-3)
[2023-12-26 12:52] LABS: HEMOGLOBIN A1c 4.8 % (4.0-6.0)
[2023-12-26 13:03] LABS: C REACTIVE PROTEIN QUANTITATIV < 0.40 MG/DL (<1.0); THYROID STIMULATING HORMONE 1.733 uIU/ML (0.55-4.78)
[2023-12-26 13:04] LABS: CPK CREATINE PHOSPHOKINASE 68 U/L (46-171); FREE T4 1.12 NG/DL (0.89-1.76)
== END ==
LOC: M LAB REF 16:30
PROVIDERS: ATTEND Nurse Practitioner Family
DX: R60.0 Localized edema (principal)

== ENCOUNTER 2024-01-03 21:48 | Inpatient (IN) | payer OTHER ==
[~2024-01-03] VITALS: Ht 157.5 cm; Wt 61.8 kg
[2024-01-03 22:50] LABS: HEMATOCRIT 39.5 % (42.0-52.0); HEMOGLOBIN 13.5 g/dl (13.5-17.5); MEAN CORPUSCULAR HEMOGLOBIN 30.2 pg (27.0-33.0); MEAN CORPUSCULAR HGB CONC 34.2 g/dl (32.0-36.5); MEAN CORPUSCULAR VOLUME 88.4 fl (80.0-96.0); PLATELET COUNT, AUTOMATED 263 10^3/uL (150-450); RED BLOOD COUNT 4.47 10^6/uL (4.30-6.10)
[2024-01-03 23:19] LABS: ETHYL ALCOHOL (ETHANOL) < 0.003 % (0.000-0.010)
[2024-01-03 23:20] LABS: SALICYLATE LEVEL < 3.0 MG/DL (<30)
[2024-01-03 23:21] LABS: ALBUMIN 3.7 G/DL (3.2-5.2); ALKALINE PHOSPHATASE 67 U/L (46-116); ALT/SGPT 16 U/L (7.0-40); AST/SGOT 12 U/L (<34); BILIRUBIN,DIRECT < 0.1 MG/DL (<0.4); BILIRUBIN,TOTAL 0.3 MG/DL (0.3-1.2); BLOOD UREA NITROGEN 18 MG/DL (9-23); CALCIUM LEVEL 8.7 MG/DL (8.5-10.1); CARBON DIOXIDE LEVEL 23 MMOL/L (20-31); CHLORIDE LEVEL 110 MMOL/L (98-107); CREATININE FOR GFR 0.78 MG/DL (0.70-1.30); GLOMERULAR FILTRATION RATE > 60.0 (>60); GLUCOSE, FASTING 85 MG/DL (60-100); POTASSIUM SERUM 4.1 MMOL/L (3.5-5.1); SODIUM LEVEL 139 MMOL/L (136-145); TOTAL PROTEIN 6.4 G/DL (5.7-8.2)
[2024-01-03] MEDS ORDERED: HOME MED LIST COMPLETE! XX SCH (23:40)
[2024-01-03 23:58] LABS: AMPHETAMINES LEVEL URINE NEGATIVE (NEGATIVE); BARBITURATES URINE NEGATIVE (NEGATIVE); BENZODIAZEPINES URINE NEGATIVE (NEGATIVE); COCAINE METABOLITE URINE NEGATIVE (NEGATIVE); METHADONE URINE NEGATIVE (NEGATIVE); OPIATES URINE NEGATIVE (NEGATIVE); PHENCYCLIDINE URINE NEGATIVE (NEGATIVE)
[2024-01-04 00:01] LABS: CANNABINOIDS URINE POSITIVE (NEGATIVE)
[2024-01-04] MEDS: DIVALPROEX 500MG *ER* TAB PO SCH (09:00)
[2024-01-04] MEDS: NICOTINE 14 MG/24 HR TRANSDERMAL TD SCH (09:00)
[2024-01-04] MEDS: TOPIRAMATE (TopAMAX) 100 MG TAB PO SCH (09:00)
[2024-01-04] MEDS: THIAMINE 100 MG TAB PO SCH (09:00)
[2024-01-04] MEDS ORDERED: diphenhydrAMINE 25MG CAP PO PRN (13:00)
[2024-01-04] MEDS ORDERED: MOM 30ML SUSPENSION UDC PO PRN (13:00)
[2024-01-04] MEDS ORDERED: MAALOX 30 ML SUSP *UDC PO PRN (13:00)
[2024-01-04] MEDS ORDERED: OLANZapine 5 MG TAB PO PRN (13:00)
[2024-01-04] MEDS ORDERED: IBUPROFEN 400MG TAB PO PRN (13:00)
[2024-01-04] MEDS ORDERED: ACETAMINOPHEN TAB 650MG DOSE (2X325MG) PO PRN (13:00)
[2024-01-04] MEDS ORDERED: LORazepam 2 MG TAB PO PRN (13:05)
[2024-01-04 16:43] VITALS: BP 112/58; TEMP 97.3; O2SAT 100
[2024-01-04] MEDS: OMEPRAZOLE 20MG CAP PO SCH (17:17)
[2024-01-04] MEDS: FOLIC ACID 1MG TAB PO SCH (17:18)
[2024-01-04] MEDS: MULTIVITAMINS/MINERALS THERAP 1 TAB PO SCH (17:18)
[2024-01-04] MEDS: CitaloPRAM (CeleXA) 20 MG TAB PO SCH (17:18)
[2024-01-04] MEDS: NALTREXONE 50 MG TAB PO SCH (17:18)
[2024-01-04] MEDS: SPIRONOLACTONE 50 MG TAB PO SCH (21:28)
[2024-01-04] MEDS: traZODone 50 MG TAB PO PRN (21:28)
[2024-01-04] MEDS: QUEtiapine FUMARATE 100 MG TAB PO SCH (21:28)
[2024-01-05 16:07] VITALS: BP 105/60; TEMP 98.2; O2SAT 95
[2024-01-05 16:31] VITALS: BP 105/60
[2024-01-05 21:23] VITALS: BP 126/70; O2SAT 98
[2024-01-05] MEDS ORDERED: ISOVUE-370 76% 100ML VIAL As Ordered ONE (21:56)
[2024-01-06 00:19] LABS: BASO % 0.6 % (0.0-1.0); EOS # 0.2 10^3/uL (0.0-0.5); EOS % 3.4 % (0.0-3.0); HEMATOCRIT 41.3 % (42.0-52.0); HEMOGLOBIN 14.1 g/dl (13.5-17.5); LYMPH % 31.4 % (24.0-44.0); MEAN CORPUSCULAR HEMOGLOBIN 29.8 pg (27.0-33.0); MEAN CORPUSCULAR HGB CONC 34.1 g/dl (32.0-36.5); MEAN CORPUSCULAR VOLUME 87.3 fl (80.0-96.0); MONO # 0.6 10^3/uL (0.0-0.8); MONO % 9.2 % (2.0-8.0); NEUTROPHILS # 3.6 10^3/uL (1.5-8.5); NEUTROPHILS % 55.1 % (36.0-66.0); PLATELET COUNT, AUTOMATED 273 10^3/uL (150-450); RED BLOOD COUNT 4.73 10^6/uL (4.30-6.10); WHITE BLOOD COUNT 6.4 10^3/uL (4.0-10.0)
[2024-01-06 00:43] LABS: ALBUMIN 3.7 G/DL (3.2-5.2); ALKALINE PHOSPHATASE 69 U/L (46-116); ALT/SGPT 15 U/L (7.0-40); AST/SGOT < 8 U/L (<34); BILIRUBIN,TOTAL 0.2 MG/DL (0.3-1.2); BLOOD UREA NITROGEN 12 MG/DL (9-23); CALCIUM LEVEL 8.9 MG/DL (8.5-10.1); CARBON DIOXIDE LEVEL 22 MMOL/L (20-31); CHLORIDE LEVEL 106 MMOL/L (98-107); CK-MB VALUE MASS 1.4 NG/ML (<3.6); CPK CREATINE PHOSPHOKINASE 58 U/L (46-171); CREATININE FOR GFR 0.72 MG/DL (0.70-1.30); GLOMERULAR FILTRATION RATE > 60.0 (>60); GLUCOSE, FASTING 86 MG/DL (60-100); MAGNESIUM LEVEL 2.1 MG/DL (1.8-2.4); MB/CK RELATIVE INDEX 2.41 (< OR =4); POTASSIUM SERUM 4.2 MMOL/L (3.5-5.1); SODIUM LEVEL 135 MMOL/L (136-145); TOTAL PROTEIN 6.6 G/DL (5.7-8.2)
[2024-01-06 06:16] VITALS: BP 104/55; TEMP 98.7; O2SAT 100
[2024-01-06 15:15] VITALS: BP 98/58; TEMP 98.3; O2SAT 97
[2024-01-07 06:12] VITALS: BP 110/56; TEMP 98.8; O2SAT 97
[2024-01-07] MEDS ORDERED: NICO14PA TD (10:21)
[2024-01-07] MEDS ORDERED: DEPA500T2 PO (10:21)
[2024-01-07] MEDS ORDERED: TOPI200T7 PO (10:21)
[2024-01-07] MEDS ORDERED: NALT50TA4 PO (10:21)
[2024-01-07] MEDS ORDERED: CELE20TA PO (10:21)
[2024-01-08] MEDS ORDERED: HYDR50TA70 (13:31)
== END 2024-01-07 10:59 | disposition home or self-care (01) | DRG 754 ==
LOC: M ED 21:48 → M ED INP 01-04 12:58 → M PSY 01-04 16:23
PROVIDERS: ADMIT Student in an Organized Health Care Education/Training Program; ATTEND Student in an Organized Health Care Education/Training Program
DX: F32.A Depression, unspecified (principal); F79 Unspecified intellectual disabilities; R45.851 Suicidal ideations; G40.909 Epilepsy, unspecified, not intractable, without status epilepticus; Z91.148 Patient's other noncompliance with medication regimen for other reason; F60.3 Borderline personality disorder; F12.10 Cannabis abuse, uncomplicated; F64.0 Transsexualism; K21.9 Gastro-esophageal reflux disease without esophagitis; F10.20 Alcohol dependence, uncomplicated; K30 Functional dyspepsia; R07.2 Precordial pain; F17.200 Nicotine dependence, unspecified, uncomplicated; Z59.01 Sheltered homelessness; Z76.5 Malingerer [conscious simulation]; Z79.899 Other long term (current) drug therapy; Z91.048 Other nonmedicinal substance allergy status

== ENCOUNTER 2024-01-08 13:05 | Emergency (ER) | payer OTHER ==
[~2024-01-08] VITALS: Ht 157.5 cm; Wt 61.8 kg
[~2024-01-08 13:05] MED LIST changes: +DEPA500T2 PO; +NICO14PA TD
[2024-01-08 13:14] VITALS: BP 120/68; TEMP 98.8; O2SAT 99
[2024-01-08] MEDS ORDERED: HYDR50TA70 (13:31)
== END 2024-01-08 15:02 | disposition left against medical advice (07) ==
LOC: EDBD 13:05 → M ED 13:05
DX: Z53.21 Procedure and treatment not carried out due to patient leaving prior to being seen by health care provider (principal)

== ENCOUNTER 2024-01-09 19:27 | Emergency (ER) | payer OTHER ==
[~2024-01-09] VITALS: Ht 157.5 cm; Wt 61.8 kg
[~2024-01-09 19:27] MED LIST changes: +HYDR50TA70
[2024-01-09 20:13] LABS: HEMATOCRIT 43.1 % (42.0-52.0); HEMOGLOBIN 14.7 g/dl (13.5-17.5); MEAN CORPUSCULAR HEMOGLOBIN 30.2 pg (27.0-33.0); MEAN CORPUSCULAR HGB CONC 34.1 g/dl (32.0-36.5); MEAN CORPUSCULAR VOLUME 88.7 fl (80.0-96.0); PLATELET COUNT, AUTOMATED 290 10^3/uL (150-450); RED BLOOD COUNT 4.86 10^6/uL (4.30-6.10); WHITE BLOOD COUNT 8.9 10^3/uL (4.0-10.0)
[2024-01-09 20:36] LABS: CK-MB VALUE MASS 1.3 NG/ML (<3.6)
[2024-01-09 20:37] LABS: ETHYL ALCOHOL (ETHANOL) < 0.003 % (0.000-0.010)
[2024-01-09 20:39] LABS: ALBUMIN 4.2 G/DL (3.2-5.2); ALKALINE PHOSPHATASE 75 U/L (46-116); ALT/SGPT 12 U/L (7.0-40); AST/SGOT 8 U/L (<34); BILIRUBIN,DIRECT < 0.1 MG/DL (<0.4); BILIRUBIN,TOTAL 0.3 MG/DL (0.3-1.2); BLOOD UREA NITROGEN 15 MG/DL (9-23); CALCIUM LEVEL 9.3 MG/DL (8.5-10.1); CARBON DIOXIDE LEVEL 23 MMOL/L (20-31); CHLORIDE LEVEL 112 MMOL/L (98-107); CPK CREATINE PHOSPHOKINASE 72 U/L (46-171); CREATININE FOR GFR 0.67 MG/DL (0.70-1.30); GLOMERULAR FILTRATION RATE > 60.0 (>60); GLUCOSE, FASTING 92 MG/DL (60-100); POTASSIUM SERUM 3.8 MMOL/L (3.5-5.1); SALICYLATE LEVEL < 3.0 MG/DL (<30); SODIUM LEVEL 140 MMOL/L (136-145)
[2024-01-09 20:41] LABS: THYROID STIMULATING HORMONE 3.791 uIU/ML (0.55-4.78)
[2024-01-09 20:53] LABS: AMPHETAMINES LEVEL URINE NEGATIVE (NEGATIVE); BARBITURATES URINE NEGATIVE (NEGATIVE); BENZODIAZEPINES URINE NEGATIVE (NEGATIVE); COCAINE METABOLITE URINE NEGATIVE (NEGATIVE); METHADONE URINE NEGATIVE (NEGATIVE)
[2024-01-09 20:54] LABS: CANNABINOIDS URINE NEGATIVE (NEGATIVE); OPIATES URINE NEGATIVE (NEGATIVE); PHENCYCLIDINE URINE NEGATIVE (NEGATIVE)
[2024-01-10] MEDS ORDERED: HOME MED LIST COMPLETE! XX SCH (07:50)
[2024-01-10 13:10] VITALS: BP 127/56; TEMP 98.1; O2SAT 98
== END 2024-01-10 13:24 | disposition home or self-care (01) ==
LOC: M ED 19:27
DX: F60.3 Borderline personality disorder (principal); R45.851 Suicidal ideations; F32.A Depression, unspecified; K21.9 Gastro-esophageal reflux disease without esophagitis; F20.9 Schizophrenia, unspecified; F31.9 Bipolar disorder, unspecified; G40.909 Epilepsy, unspecified, not intractable, without status epilepticus; F17.200 Nicotine dependence, unspecified, uncomplicated; Z91.048 Other nonmedicinal substance allergy status; Z79.899 Other long term (current) drug therapy

== ENCOUNTER 2024-01-10 22:22 | Emergency (ER) | payer OTHER ==
[2024-01-10 23:45] LABS: HEMATOCRIT 40.9 % (42.0-52.0); HEMOGLOBIN 13.9 g/dl (13.5-17.5); MEAN CORPUSCULAR HEMOGLOBIN 30.2 pg (27.0-33.0); MEAN CORPUSCULAR VOLUME 88.9 fl (80.0-96.0); PLATELET COUNT, AUTOMATED 255 10^3/uL (150-450); WHITE BLOOD COUNT 8.2 10^3/uL (4.0-10.0)
[2024-01-10 23:55] LABS: AMPHETAMINES LEVEL URINE NEGATIVE (NEGATIVE); BARBITURATES URINE NEGATIVE (NEGATIVE); BENZODIAZEPINES URINE NEGATIVE (NEGATIVE); COCAINE METABOLITE URINE NEGATIVE (NEGATIVE); METHADONE URINE NEGATIVE (NEGATIVE); OPIATES URINE NEGATIVE (NEGATIVE); PHENCYCLIDINE URINE NEGATIVE (NEGATIVE)
[2024-01-11 00:01] LABS: CANNABINOIDS URINE POSITIVE (NEGATIVE)
[2024-01-11 00:10] LABS: ETHYL ALCOHOL (ETHANOL) 0.008 % (0.000-0.010)
[2024-01-11 00:11] LABS: SALICYLATE LEVEL < 3.0 MG/DL (<30)
[2024-01-11 00:15] LABS: ALBUMIN 3.8 G/DL (3.2-5.2); ALKALINE PHOSPHATASE 69 U/L (46-116); ALT/SGPT 15 U/L (7.0-40); AST/SGOT 16 U/L (<34); BILIRUBIN,DIRECT < 0.1 MG/DL (<0.4); BILIRUBIN,TOTAL 0.3 MG/DL (0.3-1.2); BLOOD UREA NITROGEN 12 MG/DL (9-23); CALCIUM LEVEL 8.7 MG/DL (8.5-10.1); CARBON DIOXIDE LEVEL 24 MMOL/L (20-31); CHLORIDE LEVEL 109 MMOL/L (98-107); CREATININE FOR GFR 0.83 MG/DL (0.70-1.30); GLOMERULAR FILTRATION RATE > 60.0 (>60); GLUCOSE, FASTING 88 MG/DL (60-100); SODIUM LEVEL 140 MMOL/L (136-145); THYROID STIMULATING HORMONE 4.001 uIU/ML (0.55-4.78); TOTAL PROTEIN 6.3 G/DL (5.7-8.2)
[2024-01-11 12:34] VITALS: BP 121/69; TEMP 97.9; O2SAT 99
[2024-01-12] MEDS ORDERED: HYDR50TA70 PO (19:25)
[2024-01-12] MEDS ORDERED: OMEP40CA5 PO (19:25)
[2024-01-12] MEDS ORDERED: QUET100T2 PO (19:25)
== END 2024-01-11 12:36 | disposition home or self-care (01) ==
LOC: M ED 22:22
DX: Z76.5 Malingerer [conscious simulation] (principal); F31.9 Bipolar disorder, unspecified; F32.A Depression, unspecified; Z59.00 Homelessness unspecified; F17.200 Nicotine dependence, unspecified, uncomplicated; F12.10 Cannabis abuse, uncomplicated; Z91.048 Other nonmedicinal substance allergy status

== ENCOUNTER 2024-01-12 03:16 | Emergency (ER) | payer OTHER ==
[~2024-01-12] VITALS: Ht 157.5 cm; Wt 62.1 kg
[2024-01-12 04:14] LABS: HEMATOCRIT 43.3 % (42.0-52.0); HEMOGLOBIN 14.5 g/dl (13.5-17.5); MEAN CORPUSCULAR HEMOGLOBIN 30.3 pg (27.0-33.0); MEAN CORPUSCULAR HGB CONC 33.5 g/dl (32.0-36.5); MEAN CORPUSCULAR VOLUME 90.4 fl (80.0-96.0); PLATELET COUNT, AUTOMATED 243 10^3/uL (150-450); RED BLOOD COUNT 4.79 10^6/uL (4.30-6.10); WHITE BLOOD COUNT 8.5 10^3/uL (4.0-10.0)
[2024-01-12 04:36] LABS: AMPHETAMINES LEVEL URINE NEGATIVE (NEGATIVE); BARBITURATES URINE NEGATIVE (NEGATIVE); BENZODIAZEPINES URINE NEGATIVE (NEGATIVE); CANNABINOIDS URINE NEGATIVE (NEGATIVE); COCAINE METABOLITE URINE NEGATIVE (NEGATIVE); METHADONE URINE NEGATIVE (NEGATIVE); OPIATES URINE NEGATIVE (NEGATIVE); PHENCYCLIDINE URINE NEGATIVE (NEGATIVE)
[2024-01-12 04:39] LABS: ETHYL ALCOHOL (ETHANOL) < 0.003 % (0.000-0.010)
[2024-01-12 04:41] LABS: ALBUMIN 3.8 G/DL (3.2-5.2); ALKALINE PHOSPHATASE 73 U/L (46-116); ALT/SGPT 14 U/L (7.0-40); AST/SGOT 9 U/L (<34); BILIRUBIN,DIRECT < 0.1 MG/DL (<0.4); BILIRUBIN,TOTAL 0.2 MG/DL (0.3-1.2); BLOOD UREA NITROGEN 11 MG/DL (9-23); CALCIUM LEVEL 8.9 MG/DL (8.5-10.1); CARBON DIOXIDE LEVEL 24 MMOL/L (20-31); CHLORIDE LEVEL 110 MMOL/L (98-107); CREATININE FOR GFR 0.65 MG/DL (0.70-1.30); GLOMERULAR FILTRATION RATE > 60.0 (>60); GLUCOSE, FASTING 102 MG/DL (60-100); POTASSIUM SERUM 3.9 MMOL/L (3.5-5.1); SALICYLATE LEVEL < 3.0 MG/DL (<30); SODIUM LEVEL 142 MMOL/L (136-145); TOTAL PROTEIN 6.5 G/DL (5.7-8.2)
[2024-01-12 04:43] LABS: THYROID STIMULATING HORMONE 6.914 uIU/ML (0.55-4.78)
[2024-01-12 09:15] VITALS: BP 127/68; TEMP 98.2; O2SAT 100
[2024-01-12] MEDS ORDERED: OMEP40CA5 PO (19:25)
[2024-01-12] MEDS ORDERED: QUET100T2 PO (19:25)
[2024-01-12] MEDS ORDERED: HYDR50TA70 PO (19:25)
== END 2024-01-12 09:19 | disposition home or self-care (01) ==
LOC: M ED 03:16
DX: Z76.5 Malingerer [conscious simulation] (principal); Z88.8 Allergy status to other drugs, medicaments and biological substances; Z79.899 Other long term (current) drug therapy

== ENCOUNTER 2024-01-12 16:56 | Inpatient (IN) | payer OTHER ==
[~2024-01-12] VITALS: Ht 157.5 cm; Wt 63.4 kg
[2024-01-12 18:41] LABS: AMPHETAMINES LEVEL URINE NEGATIVE (NEGATIVE)
[2024-01-12 18:42] LABS: BARBITURATES URINE NEGATIVE (NEGATIVE); BENZODIAZEPINES URINE NEGATIVE (NEGATIVE); CANNABINOIDS URINE NEGATIVE (NEGATIVE); COCAINE METABOLITE URINE NEGATIVE (NEGATIVE); METHADONE URINE NEGATIVE (NEGATIVE); OPIATES URINE NEGATIVE (NEGATIVE); PHENCYCLIDINE URINE NEGATIVE (NEGATIVE)
[2024-01-12] MEDS ORDERED: HOME MED LIST COMPLETE! XX SCH (19:25)
[2024-01-12] MEDS ORDERED: OMEP40CA5 PO (19:25)
[2024-01-12] MEDS ORDERED: HYDR50TA70 PO (19:25)
[2024-01-12] MEDS ORDERED: QUET100T2 PO (19:25)
[2024-01-12] MEDS ORDERED: MOM 30ML SUSPENSION UDC PO PRN (19:35)
[2024-01-12] MEDS ORDERED: IBUPROFEN 400MG TAB PO PRN (19:35)
[2024-01-12] MEDS ORDERED: diphenhydrAMINE 25MG CAP PO PRN (19:35)
[2024-01-12] MEDS ORDERED: ACETAMINOPHEN TAB 650MG DOSE (2X325MG) PO PRN (19:35)
[2024-01-12] MEDS ORDERED: hydrOXYzine 50 MG TAB PO PRN (19:35)
[2024-01-12] MEDS ORDERED: MAALOX 30 ML SUSP *UDC PO PRN (19:35)
[2024-01-12] MEDS ORDERED: NICOTINE 21MG/24HR 1 EA TRANSDERMAL TD PRN (19:35)
[2024-01-12] MEDS ORDERED: traZODone 50 MG TAB PO PRN (19:35)
[2024-01-12] MEDS: TOPIRAMATE (TopAMAX) 100 MG TAB PO SCH (20:48)
[2024-01-12] MEDS: QUEtiapine FUMARATE 100 MG TAB PO SCH (20:48)
[2024-01-12] MEDS: DIVALPROEX 500MG *ER* TAB PO SCH (20:48)
[2024-01-12] MEDS: SPIRONOLACTONE 50 MG TAB PO SCH (20:50)
[2024-01-12 22:49] VITALS: BP 129/77; TEMP 96.8
[2024-01-13 05:59] VITALS: BP 121/60; TEMP 97.7
[2024-01-13] MEDS: NALTREXONE 50 MG TAB PO SCH (09:10)
[2024-01-13] MEDS: CitaloPRAM (CeleXA) 20 MG TAB PO SCH (09:10)
[2024-01-13 16:07] VITALS: BP 114/58; TEMP 98.6; O2SAT 99
[2024-01-14 05:54] VITALS: BP 110/59; TEMP 97.5
[2024-01-14] MEDS ORDERED: DIVA500T9 PO (09:56)
[2024-01-14] MEDS ORDERED: CHLO25TA88 PO (09:56)
[2024-01-14] MEDS ORDERED: CHLO100T30 PO (09:56)
[2024-01-14] MEDS ORDERED: OMEP40CA5 PO (09:56)
[2024-01-14] MEDS ORDERED: QUET100T2 PO (09:56)
[2024-01-14] MEDS ORDERED: SPIR50TA4 PO (09:56)
[2024-01-14] MEDS ORDERED: CITA20TA7 PO (09:56)
[2024-01-14] MEDS ORDERED: NICO21PAT TD (09:56)
== END 2024-01-14 11:51 | disposition home or self-care (01) | DRG 754 ==
LOC: M ED 16:56 → M ED INP 19:32 → M PSY 20:39
PROVIDERS: ADMIT Student in an Organized Health Care Education/Training Program; ATTEND Student in an Organized Health Care Education/Training Program
DX: F32.A Depression, unspecified (principal); F79 Unspecified intellectual disabilities; F60.3 Borderline personality disorder; Z76.5 Malingerer [conscious simulation]; F12.10 Cannabis abuse, uncomplicated; Z59.00 Homelessness unspecified; Z79.899 Other long term (current) drug therapy

== ENCOUNTER 2024-03-19 05:22 | Emergency (ER) | payer OTHER ==
[~2024-03-19] VITALS: Ht 157.5 cm; Wt 64.5 kg
[~2024-03-19 05:22] MED LIST changes: +NICO21PAT TD; +OMEP40CA5 PO
[2024-03-19 06:35] VITALS: BP 119/68; TEMP 98; O2SAT 99
== END 2024-03-19 06:46 | disposition home or self-care (01) ==
LOC: M ED 05:22
DX: F10.10 Alcohol abuse, uncomplicated (principal); Z76.5 Malingerer [conscious simulation]; F31.9 Bipolar disorder, unspecified; F41.9 Anxiety disorder, unspecified; F17.210 Nicotine dependence, cigarettes, uncomplicated; Z88.8 Allergy status to other drugs, medicaments and biological substances

== ENCOUNTER 2024-03-20 23:58 | Emergency (ER) | payer OTHER ==
[~2024-03-20] VITALS: Ht 157.5 cm; Wt 64.0 kg
[2024-03-21 02:13] LABS: HEMATOCRIT 44.2 % (42.0-52.0); HEMOGLOBIN 15.5 g/dl (13.5-17.5); MEAN CORPUSCULAR HEMOGLOBIN 30.4 pg (27.0-33.0); MEAN CORPUSCULAR HGB CONC 35.1 g/dl (32.0-36.5); MEAN CORPUSCULAR VOLUME 86.7 fl (80.0-96.0); PLATELET COUNT, AUTOMATED 273 10^3/uL (150-450); WHITE BLOOD COUNT 9.9 10^3/uL (4.0-10.0)
[2024-03-21 02:32] LABS: AMPHETAMINES LEVEL URINE NEGATIVE (NEGATIVE); BARBITURATES URINE NEGATIVE (NEGATIVE); BENZODIAZEPINES URINE NEGATIVE (NEGATIVE); COCAINE METABOLITE URINE NEGATIVE (NEGATIVE); METHADONE URINE NEGATIVE (NEGATIVE); OPIATES URINE NEGATIVE (NEGATIVE); PHENCYCLIDINE URINE NEGATIVE (NEGATIVE)
[2024-03-21 02:36] LABS: ETHYL ALCOHOL (ETHANOL) < 0.003 % (0.000-0.010)
[2024-03-21 02:37] LABS: ALBUMIN 4.4 G/DL (3.2-5.2); ALKALINE PHOSPHATASE 71 U/L (46-116); ALT/SGPT 13 U/L (7.0-40); AST/SGOT 15 U/L (<34); BILIRUBIN,DIRECT 0.3 MG/DL (<0.4); BILIRUBIN,TOTAL 0.9 MG/DL (0.3-1.2); BLOOD UREA NITROGEN 7 MG/DL (9-23); CALCIUM LEVEL 9.4 MG/DL (8.5-10.1); CARBON DIOXIDE LEVEL 23 MMOL/L (20-31); CHLORIDE LEVEL 106 MMOL/L (98-107); CREATININE FOR GFR 0.65 MG/DL (0.70-1.30); GLOMERULAR FILTRATION RATE > 60.0 (>60); GLUCOSE, FASTING 93 MG/DL (60-100); POTASSIUM SERUM 3.4 MMOL/L (3.5-5.1); SALICYLATE LEVEL < 3.0 MG/DL (<30); SODIUM LEVEL 136 MMOL/L (136-145); TOTAL PROTEIN 7.3 G/DL (5.7-8.2)
[2024-03-21 02:39] LABS: THYROID STIMULATING HORMONE 3.897 uIU/ML (0.55-4.78)
[2024-03-21 02:56] LABS: CANNABINOIDS URINE NEGATIVE (NEGATIVE)
[2024-03-21] MEDS ORDERED: HOME MED LIST COMPLETE! XX SCH (03:40)
[2024-03-21 07:45] VITALS: O2SAT 98
[2024-03-21 10:50] VITALS: BP 130/76; TEMP 98
[2024-03-22] MEDS ORDERED: CITA20TA6 PO (14:36)
== END 2024-03-21 10:53 | disposition home or self-care (01) ==
LOC: M ED 23:58
DX: F32.A Depression, unspecified (principal); F60.9 Personality disorder, unspecified; F31.9 Bipolar disorder, unspecified; Z88.8 Allergy status to other drugs, medicaments and biological substances; Z79.899 Other long term (current) drug therapy

== ENCOUNTER 2024-03-22 04:23 | Emergency (ER) | payer OTHER ==
[~2024-03-22] VITALS: Ht 157.5 cm; Wt 63.4 kg
[2024-03-22 05:16] LABS: HEMATOCRIT 42.1 % (42.0-52.0); HEMOGLOBIN 14.8 g/dl (13.5-17.5); MEAN CORPUSCULAR HEMOGLOBIN 30.5 pg (27.0-33.0); MEAN CORPUSCULAR HGB CONC 35.2 g/dl (32.0-36.5); MEAN CORPUSCULAR VOLUME 86.6 fl (80.0-96.0); PLATELET COUNT, AUTOMATED 272 10^3/uL (150-450); RED BLOOD COUNT 4.86 10^6/uL (4.30-6.10); WHITE BLOOD COUNT 11.2 10^3/uL (4.0-10.0)
[2024-03-22 05:29] LABS: AMPHETAMINES LEVEL URINE NEGATIVE (NEGATIVE); BARBITURATES URINE NEGATIVE (NEGATIVE); BENZODIAZEPINES URINE NEGATIVE (NEGATIVE); COCAINE METABOLITE URINE NEGATIVE (NEGATIVE); METHADONE URINE NEGATIVE (NEGATIVE)
[2024-03-22 05:30] LABS: CANNABINOIDS URINE NEGATIVE (NEGATIVE); ETHYL ALCOHOL (ETHANOL) < 0.003 % (0.000-0.010); OPIATES URINE NEGATIVE (NEGATIVE); PHENCYCLIDINE URINE NEGATIVE (NEGATIVE)
[2024-03-22 05:32] LABS: SALICYLATE LEVEL < 3.0 MG/DL (<30)
[2024-03-22 05:37] LABS: ALKALINE PHOSPHATASE 68 U/L (46-116); ALT/SGPT 16 U/L (7.0-40); AST/SGOT 26 U/L (<34); BILIRUBIN,DIRECT 0.2 MG/DL (<0.4); BILIRUBIN,TOTAL 0.4 MG/DL (0.3-1.2); BLOOD UREA NITROGEN 6 MG/DL (9-23); CALCIUM LEVEL 9.4 MG/DL (8.5-10.1); CARBON DIOXIDE LEVEL 23 MMOL/L (20-31); CHLORIDE LEVEL 109 MMOL/L (98-107); CREATININE FOR GFR 0.57 MG/DL (0.70-1.30); GLOMERULAR FILTRATION RATE > 60.0 (>60); GLUCOSE, FASTING 100 MG/DL (60-100); POTASSIUM SERUM 3.2 MMOL/L (3.5-5.1); SODIUM LEVEL 139 MMOL/L (136-145); THYROID STIMULATING HORMONE 4.581 uIU/ML (0.55-4.78)
[2024-03-22] MEDS: POTASSIUM CHLORIDE 10MEQ SR TABLET PO ONE (09:34)
[2024-03-22] MEDS ORDERED: CITA20TA6 PO (14:36)
[2024-03-22] MEDS ORDERED: HOME MED LIST COMPLETE! XX SCH (14:40)
[2024-03-22] MEDS ORDERED: hydrOXYzine 50 MG TAB PO PRN (20:35)
[2024-03-22] MEDS ORDERED: SPIRONOLACTONE 50 MG TAB PO SCH (21:00)
[2024-03-22] MEDS: DIVALPROEX 500MG *ER* TAB PO SCH (21:06)
[2024-03-22] MEDS: TOPIRAMATE (TopAMAX) 100 MG TAB PO SCH (21:06)
[2024-03-22] MEDS: QUEtiapine FUMARATE 100 MG TAB PO SCH (21:06)
[2024-03-22] MEDS: traZODone 50 MG TAB PO SCH (21:06)
[2024-03-22 22:50] LABS: AMORPHOUS SEDIMENT SMALL (NEGATIVE); APPEARANCE, URINE TURBID (CLEAR); BACTERIA, URINE AUTO NEGATIVE (NEGATIVE); BILIRUBIN, URINE AUTO NEGATIVE (NEGATIVE); BLOOD, URINE BLOOD NEGATIVE (NEGATIVE); COLOR, URINE AMBER (YELLOW); GLUCOSE, URINE (UA) AUTO NEGATIVE (NEGATIVE); KETONE, URINE AUTO NEGATIVE (NEGATIVE); LEUKOCYTE ESTERASE, URINE AUTO NEGATIVE (NEGATIVE); MUCUS, URINE SMALL (NEGATIVE); NITRITE, URINE AUTO NEGATIVE (NEGATIVE); PROTEIN, URINE AUTO NEGATIVE (NEGATIVE); RBC, URINE AUTO 0 /HPF (0-3); SPECIFIC GRAVITY URINE AUTO 1.016 (1.002-1.035); SQUAMOUS EPITHELIAL CELL UR AU 0 /HPF (0-6); WBC, URINE AUTO 0 /HPF (0-3)
[2024-03-23] MEDS: SPIRONOLACTONE 50 MG TAB PO SCH (10:01)
[2024-03-23] MEDS: NALTREXONE 50 MG TAB PO SCH (10:01)
[2024-03-23] MEDS: CitaloPRAM (CeleXA) 20 MG TAB PO SCH (10:02)
[2024-03-23] MEDS: OMEPRAZOLE 20MG CAP PO SCH (10:02)
[2024-03-24 10:38] VITALS: BP 111/55; TEMP 97.6; O2SAT 99
== END 2024-03-24 10:39 | disposition home or self-care (01) ==
LOC: EDBD 04:23 → M ED 04:23 → EDSEX 04:23 → M ED 03-24 10:39
DX: F20.9 Schizophrenia, unspecified (principal); F41.9 Anxiety disorder, unspecified; F17.210 Nicotine dependence, cigarettes, uncomplicated; F10.10 Alcohol abuse, uncomplicated; Z88.8 Allergy status to other drugs, medicaments and biological substances; Z79.899 Other long term (current) drug therapy

== ENCOUNTER 2024-04-13 21:06 | Emergency (ER) | payer OTHER ==
[~2024-04-13 21:06] MED LIST changes: -ARIP10TA32 PO; +ARIP10TA63 PO; +CITA20TA6 PO
[2024-04-13 21:14] VITALS: TEMP 98
[2024-04-13 22:54] LABS: AMPHETAMINES LEVEL URINE NEGATIVE (NEGATIVE); BARBITURATES URINE NEGATIVE (NEGATIVE); BENZODIAZEPINES URINE NEGATIVE (NEGATIVE)
[2024-04-13 22:55] LABS: CANNABINOIDS URINE NEGATIVE (NEGATIVE); COCAINE METABOLITE URINE NEGATIVE (NEGATIVE); METHADONE URINE NEGATIVE (NEGATIVE); OPIATES URINE NEGATIVE (NEGATIVE); PHENCYCLIDINE URINE NEGATIVE (NEGATIVE)
[2024-04-14 00:30] VITALS: BP 115/66
[2024-04-14 00:36] VITALS: O2SAT 90
== END 2024-04-14 00:55 | disposition home or self-care (01) ==
LOC: M ED 21:06
DX: F12.120 Cannabis abuse with intoxication, uncomplicated (principal); T59.811A Toxic effect of smoke, accidental (unintentional), initial encounter; F31.9 Bipolar disorder, unspecified; R56.9 Unspecified convulsions; K21.9 Gastro-esophageal reflux disease without esophagitis; F17.200 Nicotine dependence, unspecified, uncomplicated; Z79.899 Other long term (current) drug therapy

== ENCOUNTER 2024-04-21 22:22 | Emergency (ER) | payer OTHER ==
[~2024-04-21] VITALS: Ht 157.5 cm; Wt 63.6 kg
[2024-04-21 23:10] LABS: HEMATOCRIT 45.7 % (42.0-52.0); HEMOGLOBIN 15.4 g/dl (13.5-17.5); MEAN CORPUSCULAR HEMOGLOBIN 30.6 pg (27.0-33.0); MEAN CORPUSCULAR HGB CONC 33.7 g/dl (32.0-36.5); MEAN CORPUSCULAR VOLUME 90.9 fl (80.0-96.0); PLATELET COUNT, AUTOMATED 311 10^3/uL (150-450); RED BLOOD COUNT 5.03 10^6/uL (4.30-6.10); WHITE BLOOD COUNT 9.1 10^3/uL (4.0-10.0)
[2024-04-21 23:30] LABS: AMPHETAMINES LEVEL URINE NEGATIVE (NEGATIVE); BARBITURATES URINE NEGATIVE (NEGATIVE); BENZODIAZEPINES URINE NEGATIVE (NEGATIVE); COCAINE METABOLITE URINE NEGATIVE (NEGATIVE); ETHYL ALCOHOL (ETHANOL) < 0.003 % (0.000-0.010); METHADONE URINE NEGATIVE (NEGATIVE); OPIATES URINE NEGATIVE (NEGATIVE); PHENCYCLIDINE URINE NEGATIVE (NEGATIVE); VALPROIC ACID (DEPAKOTE) < 3.0 UG/ML (50.0-100.0)
[2024-04-21 23:32] LABS: ALBUMIN 3.8 G/DL (3.2-5.2); ALKALINE PHOSPHATASE 79 U/L (46-116); ALT/SGPT 14 U/L (7.0-40); AST/SGOT 13 U/L (<34); BILIRUBIN,DIRECT 0.1 MG/DL (<0.4); BILIRUBIN,TOTAL 0.3 MG/DL (0.3-1.2); BLOOD UREA NITROGEN 8 MG/DL (9-23); CALCIUM LEVEL 9.5 MG/DL (8.5-10.1); CARBON DIOXIDE LEVEL 30 MMOL/L (20-31); CHLORIDE LEVEL 106 MMOL/L (98-107); CREATININE FOR GFR 0.66 MG/DL (0.70-1.30); GLOMERULAR FILTRATION RATE > 60.0 (>60); GLUCOSE, FASTING 97 MG/DL (60-100); POTASSIUM SERUM 4.1 MMOL/L (3.5-5.1); SALICYLATE LEVEL < 3.0 MG/DL (<30); SODIUM LEVEL 143 MMOL/L (136-145); TOTAL PROTEIN 6.9 G/DL (5.7-8.2)
[2024-04-21 23:33] LABS: CANNABINOIDS URINE POSITIVE (NEGATIVE)
[2024-04-21 23:35] LABS: THYROID STIMULATING HORMONE 6.901 uIU/ML (0.55-4.78)
[2024-04-22] MEDS ORDERED: HOME MED LIST COMPLETE! XX SCH (08:50)
[2024-04-22 11:35] VITALS: BP 116/62; TEMP 97.3; O2SAT 99
== END 2024-04-22 11:36 | disposition home or self-care (01) ==
LOC: M ED 22:22
DX: F25.9 Schizoaffective disorder, unspecified (principal); G40.909 Epilepsy, unspecified, not intractable, without status epilepticus; K21.9 Gastro-esophageal reflux disease without esophagitis; F32.A Depression, unspecified; F17.210 Nicotine dependence, cigarettes, uncomplicated; Z88.8 Allergy status to other drugs, medicaments and biological substances; Z79.899 Other long term (current) drug therapy

== ENCOUNTER 2024-05-16 21:21 | Emergency (ER) | payer OTHER ==
[~2024-05-16] VITALS: Ht 154.9 cm; Wt 62.6 kg
[2024-05-16 21:29] VITALS: BP 139/62; TEMP 98.1; O2SAT 98
== END 2024-05-16 22:47 | disposition left against medical advice (07) ==
LOC: M ED 21:21
DX: Z53.21 Procedure and treatment not carried out due to patient leaving prior to being seen by health care provider (principal)

== ENCOUNTER 2024-06-06 04:01 | Emergency (ER) | payer OTHER ==
[~2024-06-06] VITALS: Ht 154.9 cm; Wt 62.1 kg
[2024-06-06 04:32] LABS: BASO # 0.1 10^3/uL (0.0-0.2); BASO % 0.4 % (0.0-1.0); EOS # 0.1 10^3/uL (0.0-0.5); EOS % 0.9 % (0.0-3.0); HEMATOCRIT 42.4 % (42.0-52.0); HEMOGLOBIN 14.4 g/dl (13.5-17.5); LYMPH # 1.5 10^3/uL (1.5-5.0); LYMPH % 9.9 % (24.0-44.0); MEAN CORPUSCULAR HEMOGLOBIN 30.5 pg (27.0-33.0); MEAN CORPUSCULAR VOLUME 89.8 fl (80.0-96.0); MONO # 1.6 10^3/uL (0.0-0.8); MONO % 10.7 % (2.0-8.0); NEUTROPHILS # 11.5 10^3/uL (1.5-8.5); NEUTROPHILS % 77.8 % (36.0-66.0); PLATELET COUNT, AUTOMATED 278 10^3/uL (150-450); RED BLOOD COUNT 4.72 10^6/uL (4.30-6.10); WHITE BLOOD COUNT 14.7 10^3/uL (4.0-10.0)
[2024-06-06 05:00] LABS: CK-MB VALUE MASS 4.2 NG/ML (<3.6)
[2024-06-06 05:01] LABS: BLOOD UREA NITROGEN 6 MG/DL (9-23); CALCIUM LEVEL 8.9 MG/DL (8.5-10.1); CARBON DIOXIDE LEVEL 26 MMOL/L (20-31); CHLORIDE LEVEL 106 MMOL/L (98-107); CREATININE FOR GFR 0.64 MG/DL (0.70-1.30); GLOMERULAR FILTRATION RATE > 60.0 (>60); GLUCOSE, FASTING 110 MG/DL (60-100); POTASSIUM SERUM 3.9 MMOL/L (3.5-5.1); SODIUM LEVEL 138 MMOL/L (136-145)
[2024-06-06 05:13] LABS: CPK CREATINE PHOSPHOKINASE 63 U/L (46-171); MB/CK RELATIVE INDEX 6.66 (< OR =4)
[2024-06-06] MEDS: ONDANSETRON 4MG ORAL DISINTEGRATING TAB PO ONE (06:49)
[2024-06-06] MEDS: ACETAMINOPHEN 500 MG TAB PO ONE (06:50)
[2024-06-06 08:54] VITALS: BP 120/63; TEMP 98.4; O2SAT 98
== END 2024-06-06 08:57 | disposition home or self-care (01) ==
LOC: M ED 04:01
DX: M94.0 Chondrocostal junction syndrome [Tietze] (principal); R11.10 Vomiting, unspecified; F31.9 Bipolar disorder, unspecified; F17.210 Nicotine dependence, cigarettes, uncomplicated; F12.10 Cannabis abuse, uncomplicated; I25.2 Old myocardial infarction; Z85.841 Personal history of malignant neoplasm of brain; Z88.8 Allergy status to other drugs, medicaments and biological substances; Z79.899 Other long term (current) drug therapy

== ENCOUNTER 2024-06-19 14:31 | Inpatient (IN) | payer OTHER ==
[~2024-06-19] VITALS: Ht 154.9 cm; Wt 61.4 kg
[2024-06-19 15:10] LABS: HEMATOCRIT 45.8 % (42.0-52.0); HEMOGLOBIN 15.3 g/dl (13.5-17.5); MEAN CORPUSCULAR HEMOGLOBIN 29.9 pg (27.0-33.0); MEAN CORPUSCULAR HGB CONC 33.4 g/dl (32.0-36.5); MEAN CORPUSCULAR VOLUME 89.6 fl (80.0-96.0); PLATELET COUNT, AUTOMATED 331 10^3/uL (150-450); RED BLOOD COUNT 5.11 10^6/uL (4.30-6.10); WHITE BLOOD COUNT 9.6 10^3/uL (4.0-10.0)
[2024-06-19 15:31] LABS: AMPHETAMINES LEVEL URINE NEGATIVE (NEGATIVE)
[2024-06-19 15:32] LABS: BARBITURATES URINE NEGATIVE (NEGATIVE); BENZODIAZEPINES URINE NEGATIVE (NEGATIVE); COCAINE METABOLITE URINE NEGATIVE (NEGATIVE); METHADONE URINE NEGATIVE (NEGATIVE); OPIATES URINE NEGATIVE (NEGATIVE); PHENCYCLIDINE URINE NEGATIVE (NEGATIVE)
[2024-06-19 15:33] LABS: ETHYL ALCOHOL (ETHANOL) < 0.003 % (0.000-0.010); SALICYLATE LEVEL < 3.0 MG/DL (<30)
[2024-06-19 15:34] LABS: CANNABINOIDS URINE POSITIVE (NEGATIVE)
[2024-06-19 15:36] LABS: THYROID STIMULATING HORMONE 3.654 uIU/ML (0.55-4.78)
[2024-06-19 15:37] LABS: ALBUMIN 4.3 G/DL (3.2-5.2); ALKALINE PHOSPHATASE 87 U/L (40-129); ALT/SGPT 20 U/L (7.0-40); AST/SGOT 17 U/L (<34); BILIRUBIN,DIRECT 0.2 MG/DL (<0.4); BILIRUBIN,TOTAL 0.6 MG/DL (0.3-1.2); BLOOD UREA NITROGEN 14 MG/DL (9-23); CARBON DIOXIDE LEVEL 25 MMOL/L (20-31); CHLORIDE LEVEL 103 MMOL/L (98-107); CREATININE FOR GFR 0.55 MG/DL (0.70-1.30); GLOMERULAR FILTRATION RATE > 60.0 (>60); GLUCOSE, FASTING 83 MG/DL (60-100); POTASSIUM SERUM 4.2 MMOL/L (3.5-5.1); SODIUM LEVEL 139 MMOL/L (136-145); TOTAL PROTEIN 7.5 G/DL (5.7-8.2)
[2024-06-19] MEDS ORDERED: IBUPROFEN 400MG TAB PO PRN (17:50)
[2024-06-19] MEDS ORDERED: diphenhydrAMINE 25MG CAP PO PRN (17:50)
[2024-06-19] MEDS ORDERED: MOM 30ML SUSPENSION UDC PO PRN (17:50)
[2024-06-19] MEDS ORDERED: MAALOX 30 ML SUSP *UDC PO PRN (17:50)
[2024-06-19] MEDS ORDERED: ACETAMINOPHEN 325 MG TAB PO PRN (17:50)
[2024-06-19] MEDS ORDERED: HOME MED LIST COMPLETE! XX SCH (18:25)
[2024-06-20 06:28] VITALS: BP 116/58; TEMP 97.3; O2SAT 98
[2024-06-20] MEDS ORDERED: hydrOXYzine 50 MG TAB PO PRN (08:25)
[2024-06-20] MEDS: CitaloPRAM (CeleXA) 20 MG TAB PO SCH (08:53)
[2024-06-20] MEDS: OMEPRAZOLE 20MG CAP PO SCH (08:54)
[2024-06-20] MEDS: DIVALPROEX 500MG *ER* TAB PO SCH (08:54)
[2024-06-20 15:25] VITALS: BP 125/75; TEMP 98; O2SAT 100
[2024-06-20] MEDS: QUEtiapine FUMARATE 100 MG TAB PO SCH (20:24)
[2024-06-21 06:25] VITALS: BP 134/60; TEMP 97.6; O2SAT 98
[2024-06-21] MEDS: ESCITALOPRAM OXALATE 10 MG TAB (LEXAPRO) PO SCH (08:14)
[2024-06-21 15:02] VITALS: BP 112/58; TEMP 98.1; O2SAT 98
[2024-06-21] MEDS: traZODone 50 MG TAB PO PRN (20:13)
[2024-06-22 06:17] VITALS: BP 117/58; TEMP 96.4; O2SAT 97
[2024-06-22 14:50] VITALS: BP 124/59; TEMP 98.1; O2SAT 95
[2024-06-23 06:23] VITALS: BP 134/62; TEMP 97.3; O2SAT 99
[2024-06-23] MEDS ORDERED: DEPA500T2 PO (08:14)
[2024-06-23] MEDS ORDERED: OMEP-173 PO (08:14)
[2024-06-23] MEDS ORDERED: LEXA1TAB PO (08:14)
[2024-06-23] MEDS ORDERED: QUET100T2 PO (08:14)
== END 2024-06-23 10:11 | disposition home or self-care (01) | DRG 754 ==
LOC: M ED 14:31 → M ED INP 17:46 → M PSY 20:05
PROVIDERS: ADMIT Psychiatry & Neurology Neurology; ATTEND Psychiatry & Neurology Psychiatry
DX: F32.A Depression, unspecified (principal); F79 Unspecified intellectual disabilities; R45.851 Suicidal ideations; Z91.148 Patient's other noncompliance with medication regimen for other reason; G40.909 Epilepsy, unspecified, not intractable, without status epilepticus; F60.3 Borderline personality disorder; F12.10 Cannabis abuse, uncomplicated; F10.11 Alcohol abuse, in remission; K21.9 Gastro-esophageal reflux disease without esophagitis; F17.210 Nicotine dependence, cigarettes, uncomplicated; F64.0 Transsexualism; Z76.5 Malingerer [conscious simulation]; Z91.51 Personal history of suicidal behavior; Z91.048 Other nonmedicinal substance allergy status

== ENCOUNTER 2024-06-25 20:11 | Emergency (ER) | payer OTHER ==
[~2024-06-25] VITALS: Ht 154.9 cm; Wt 61.8 kg
[~2024-06-25 20:11] MED LIST changes: +LEXA1TAB PO; +OMEP-173 PO
[2024-06-25] MEDS: ONDANSETRON 4MG ORAL DISINTEGRATING TAB PO ONE (21:10)
[2024-06-25 22:52] VITALS: BP 136/62; TEMP 98.2; O2SAT 96
== END 2024-06-25 22:53 | disposition home or self-care (01) ==
LOC: M ED 20:11 → EDBD 20:11 → M ED 22:53
DX: R11.2 Nausea with vomiting, unspecified (principal); G40.909 Epilepsy, unspecified, not intractable, without status epilepticus; Z88.8 Allergy status to other drugs, medicaments and biological substances; Z79.899 Other long term (current) drug therapy

== ENCOUNTER 2024-07-05 06:54 | Emergency (ER) | payer OTHER ==
[~2024-07-05] VITALS: Ht 154.9 cm; Wt 67.2 kg
[2024-07-05 06:57] VITALS: BP 134/60; TEMP 98.1; O2SAT 98
[2024-07-05] MEDS ORDERED: DIVA500T9 PO (07:45)
[2024-07-05] MEDS ORDERED: LEXA1TAB PO (07:45)
[2024-07-05] MEDS ORDERED: QUET100T2 PO (07:45)
== END 2024-07-05 07:54 | disposition home or self-care (01) ==
LOC: M ED 06:54
DX: Z76.0 Encounter for issue of repeat prescription (principal); Z91.09 Other allergy status, other than to drugs and biological substances; Z79.899 Other long term (current) drug therapy